=== PATIENT | male | born 1965 | race Caucasian/White ===

== ENCOUNTER 2017-02-12 08:56 | Inpatient (IN) ==
[2017-02-12] MEDS ORDERED: *HR* Ticagrelor 90 MG TABLET PO ONE (09:06)
[2017-02-12] MEDS ORDERED: *HR* Metoprolol 5 MG/5 ML VIAL IVP ONE (09:06)
[2017-02-12] MEDS ORDERED: *HR* Heparin 5,000 UNIT/ML VIAL IVP ONE (09:10)
[2017-02-12] MEDS ORDERED: Aspirin 325 MG TABLET PO ONE (09:12)
[2017-02-12] MEDS ORDERED: Nitroglycerin 0.4 MG TAB.SUBL SL PRN (09:29)
[2017-02-12] MEDS ORDERED: Nitroglycerin 0.4 MG TAB.SUBL SL ONE (09:29)
[2017-02-12 09:31] LABS: Basophils # 0.1 K/mcL (0.0-0.2); Basophils % 0.7 %; Eosinophils # 0.1 K/mcL (0.0-0.6); Eosinophils % 1.1 %; Hematocrit 47.2 % (37.5-50.1); Hemoglobin 15.8 g/dL (12.9-16.9); Immature Granulocytes % 0.3 % (0-4); Immature Platelets 4.9 % (1.1-6.1); Lymphocytes # 2.6 K/mcL (0.6-4.6); Lymphocytes % 22.8 %; Mean Corpuscular HGB Conc 33.5 g/dL (31.6-35.5); Mean Corpuscular Hemoglobin 30.2 pg (28.0-33.3); Mean Corpuscular Volume 90.1 fL (83.0-100.0); Mean Platelet Volume 9.9 fL (9.4-12.4); Monocytes # 0.8 K/mcL (0.0-1.3); Monocytes % 7.3 %; Neutrophils # 7.7 K/mcL (1.6-8.9); Platelet Count 252 K/mcL (140-400); Red Blood Count 5.24 M/mcL (4.19-5.50); Red Cell Distribution Width 13.2 % (11.5-14.5); Segmented Neutrophils % 67.8 %
[2017-02-12] MEDS ORDERED: 0.9 % Sodium Chloride 1,000 ML ONE ×2 (09:32→09:51)
[2017-02-12] MEDS ORDERED: *HR* FentaNYL (PF) 100 MCG/2 ML VIAL ONE (09:32)
[2017-02-12] MEDS ORDERED: *HR* Midazolam HCl 5 MG/5 ML VIAL IVP ONE (09:32)
[2017-02-12] MEDS ORDERED: Verapamil 5 MG/2 ML VIAL ONE (09:32)
[2017-02-12] MEDS ORDERED: Nitroglycerin 1,000 MCG/10 ML VIAL IV ONE (09:33)
[2017-02-12] MEDS ORDERED: *HR* Heparin 10,000 UNIT/10 ML VIAL ONE (09:33)
[2017-02-12] MEDS ORDERED: Heparin 1,000 UNITS/500 mL NS 500 ML ONE (09:33)
[2017-02-12 09:37] LABS: INR 1.1; Prothrombin Time 12.3 Seconds (9.4-12.1)
--- NOTE | 2017-02-12 09:38 | Emergency Department Note ---
Disposition Clinical Impression: STEMI (ST elevation myocardial infarction) Qualifiers: Involved coronary artery: left circumflex coronary artery Qualified Code(s): I21.21 - ST elevation (STEMI) myocardial infarction involving left circumflex coronary artery Disposition: Admitted As Inpatient Chest Pain HPI - General Chief Complaint: ED Chest Pain Stated Complaint: Chest Pain Time Seen by Provider: 02/12/17 08:57 Source: patient Limitations: no limitations Vital Signs Reviewed: Yes Nursing Notes Reviewed: Yes - History of Present Illness HPI Narrative: Patient is here for evaluation of chest pain. Patient awoke between 5 and 6 AM and had substernal pain that he took antacids for. Antacids did not relieve pain. Pain radiation to both shoulders and the jaw. Describes as a dull pressure. Nothing makes it better or worse. Mild diaphoresis. No previous history of chest pain. Daily smoker. Family history of SD in early 50s with father. Patient has hypertension and hypercholesterol that he does not follow with PCP for. EKG shows ST elevations. Will discuss with cardiology and likely admit for cardiac catheterization. Severity scale (1-10): 5 - Related Data Allergies Allergy/AdvReac Type Severity Reaction Status Date / Time No Known Allergies Allergy Verified 02/12/17 09:04 Review of Systems: CONSTITUTIONAL: No weight loss, fever, chills, weakness or fatigue. HEENT: Eyes: No visual changes. Ears, Nose, Throat: No hearing loss, difficulty talking or unable to swallow. SKIN: No rash or itching. CARDIOVASCULAR: chest pain RESPIRATORY: No shortness of breath, cough or sputum. GASTROINTESTINAL: No anorexia, nausea, vomiting or diarrhea. No abdominal pain or blood. GENITOURINARY: No burning on urination or hematuria. NEUROLOGICAL: No headache, dizziness, syncope, paralysis, ataxia, numbness or tingling in the extremities. No change in bowel or bladder control. MUSCULOSKELETAL: No muscle pain, back pain, joint pain or stiffness. Chest Pain PMH - Past Medical History Medical history: Reports: hyperlipidemia Psychiatric history: Reports: no psych history - Social History Smoking Status: Current every day smoker Alcohol use: Reports: none Drug use: Reports: none Physical Exam General appearance: NAD, conversant Eyes: anicteric sclerae, moist conjunctivae; PERRL HENT: Atraumatic; oropharynx clear with moist mucous membranes and no mucosal ulcerations Neck: Normal inspection; Trachea midline; FROM, supple Lungs: CTA, with normal respiratory effort and no intercostal retractions CV: RRR, no MRGs Abdomen: Soft, non-tender; no rebound or gaurding Extremities: No peripheral edema or extremity lymphadenopathy Skin: Normal temperature; no rash, ulcers or lesions Psych: Appropriate mood and affect Neuro: alert and oriented to person, place and time - General Limitations: no limitations General appearance: alert, in no apparent distress Course - Consultations Consultation #1: Dr. MAGALLANES discussed with interventional cardiology. Continue with STEMI alert and the patient will be taken to [facility]. Vital Signs Temperature 98.0 F 02/12/17 08:59 Pulse Rate 74 02/12/17 08:59 Respiratory Rate 16 02/12/17 08:59 Blood Pressure 187/115 02/12/17 08:59 O2 Sat by Pulse Oximetry 99 02/12/17 08:59 Temperature 98.0 F 02/12/17 08:59 Pulse Rate 74 02/12/17 09:34 Respiratory Rate 16 02/12/17 09:34 Blood Pressure 170/102 02/12/17 09:34 O2 Sat by Pulse Oximetry 96 02/12/17 09:34 Oxygen Delivery Oxygen Delivery Room Air Chest Pain - Medical Records Medical records reviewed: Yes I reviewed the patient's medical records. - Lab Data Lab results reviewed: Yes I reviewed the patient's lab results. Result diagrams: 02/12/17 09:25 Lab Results 02/12/17 02/12/17 Range/Units 09:13 09:25 WBC 11.4 H (4.3-11.1) K/mcL RBC 5.24 (4.19-5.50) M/mcL Hgb 15.8 (12.9-16.9) g/dL Hct 47.2 (37.5-50.1) % MCV 90.1 (83.0-100.0) fL MCH 30.2 (28.0-33.3) pg MCHC 33.5 (31.6-35.5) g/dL RDW 13.2 (11.5-14.5) % Plt Count 252 (140-400) K/mcL MPV 9.9 (9.4-12.4) fL Immature Gran % 0.3 (0-4) % Seg Neutrophils % 67.8 % Lymphocytes % 22.8 % Monocytes % 7.3 % Eosinophils % 1.1 % Basophils % 0.7 % Neutrophils # 7.7 (1.6-8.9) K/mcL Lymphocytes # 2.6 (0.6-4.6) K/mcL Monocytes # 0.8 (0.0-1.3) K/mcL Eosinophils # 0.1 (0.0-0.6) K/mcL Basophils # 0.1 (0.0-0.2) K/mcL Immature Plt Fraction 4.9 (1.1-6.1) % Specimen Rejected Hemolyzed - Radiology Data Radiology results reviewed: Yes I reviewed the patient's radiology results. - EKG Data EKG attestation: Yes I reviewed and interpreted this EKG. EKG results narrative: Patient's EKG shows sinus rhythm with a ventricular rate of 69. Patient has significant ST elevations in 1 aVL V4 V5 and V6. Patient has reciprocal changes to V1 and V2 V3. Patient has depression the ST segment of aVR. STEMI alert called. Attestation Statement - Attestation Attestation: I examined this patient and my medical decision-making was reviewed with the Resident Physician. I agree with the documented findings, disposition and treatment plan as described except to the extent set forth below. Patient to ED with chest pain. Substernal to neck and left arm. Pain has improved but not resolved. No cardiac history. Does have a history of hypertension but does not take medicine. Exam shows him sitting in bed with no acute distress. He is hypertensive in the 180s systolic. Plan. Patient has ST elevation in lateral leads. STEMI alert called. Meds given. Patient to [facility]. 30 minutes of critical care exclusive of separately billable procedures.
[2017-02-12] MEDS ORDERED: *HR* Morphine 2 MG/ML SYRINGE IVP PRN (09:40)
--- NOTE | 2017-02-12 09:40 | Cardiology History & Physical ---
Date of Encounter: 02/12/17 Time of Encounter: 09:40 Assessment and Plan (1) STEMI (ST elevation myocardial infarction) Current Visit: Yes Status: Acute Emergent LHC to delineate any coronary disease amenable to intervention. A/R/B of LHC discussed and he wishes to proceed. EF assessment will be completed. Aspirin, brilinta, and heparin given. cardiac rehab ordered. The assessment and plan as outlined above was discussed with the patient and/or family members who expressed understanding and agreement. All questions were answered. Qualifiers: Involved coronary artery: left circumflex coronary artery Qualified Code(s) : I21.21 - ST elevation (STEMI) myocardial infarction involving left circumflex coronary artery (2) Nicotine dependence Current Visit: Yes Status: Acute Nicotine patch. cessation counseled The assessment and plan as outlined above was discussed with the patient and/or family members who expressed understanding and agreement. All questions were answered. Qualifiers: Nicotine product type: cigarettes Substance use status: uncomplicated Qualified Code(s): F17.210 - Nicotine dependence, cigarettes, uncomplicated (3) HTN (hypertension) Current Visit: Yes Status: Acute Medications to be titrated The assessment and plan as outlined above was discussed with the patient and/or family members who expressed understanding and agreement. All questions were answered. Qualifiers: Hypertension type: essential hypertension Qualified Code(s): I10 - Essential (primary) hypertension History of Present Illness Chief complaint: chest pain HPI: Mr. Claudio is a 52 year old male with history of HTN and nicotine dependence - 1ppd - presents with retrosternal chest discomfort described as pressure minimally relieved with NTG/aspirin. It started at 5am, awakening him. He had associated dyspnea. EKG shows lateral STEMI and laboratory aide team activated. Past Med Surg Social Fam HX - Past Medical History Medical history: hyperlipidemia Psychiatric history: no psych history - Social History Smoking Status: Current every day smoker Alcohol use: none Drug use: none Medications and Allergies Allergies No Known Allergies Allergy (Verified 02/12/17 09:04) All Systems Review: A 10-system review of systems was performed and is negative for pertinent findings except as documented above in the HPI. - Constitutional Constitutional: no chills, no fever(s) - EENT Eyes: no blurred vision, no loss of vision Nose, mouth and throat: no bleeding gums, no epistaxis - Cardiovascular Cardiovascular: chest pain at rest, chest pain with exertion - Respiratory Respiratory: dyspnea, no hemoptysis - Gastrointestinal Gastrointestinal: no hematemesis, no hematochezia - Genitourinary Genitourinary: no hematuria, no nocturia - Musculoskeletal Musculoskeletal: no abnormal gait, no myalgias - Integumentary Integumentary: no erythema, no rash - Neurological Neurological: no abnormal speech, no numbness - Psychiatric Psychiatric: no hallucinations, no panic attacks - Hematological/Lymphatic Hematologic/Lymphatic: no easy bleeding, no easy bruising Physical Examination Vital Signs, Last 4 Hours Pulse Resp BP Pulse Ox 02/12/17 09:34 74 16 170/102 96 General: Conversant, Other (mild distress) HEENT: Atraumatic, Normocephaly Neck: No JVD Cardiac: Reg Rate and Rhythm Lungs: Normal Breath Sounds, No Wheeze, Rales, Rhonchi Neuro: Alert and responsive Abdomen: Soft Skin: No rashes noted on visualized skin Musculoskeletal: No Chest Wall Tenderness Extremities: No Edema Results 02/12/17 09:25 02/12/17 09:25 - EKG Interpretation EKG results cardiology: sinus rhythm (lateral current of injury)
[2017-02-12 09:43] LABS: BUN/Creatinine Ratio 13 (6-26); Blood Urea Nitrogen 12 mg/dL (8-26); Calcium 9.5 mg/dL (8.6-10.8); Carbon Dioxide 27 mEq/L (19-29); Chloride 104 mEq/L (98-109); Glucose 115 mg/dL (70-99); Magnesium 2.3 mg/dL (1.6-2.6); Osmolality,Calculated 289 (280-300); Potassium 3.7 mEq/L (3.5-4.5); Sodium 139 mEq/L (136-145); eGFR For African Americans > 60 (> 60); eGFR For Non-African Americans > 60 (> 60)
--- NOTE | 2017-02-12 09:46 | Pre-Sedation Evaluation ---
Pre-sedation evaluation - Pre-sedation checklist Date of procedure: 02/12/17 Procedure: [facility] Recent Vitals: Last Vital Signs Temp 98.0 F 02/12/17 08:59 Pulse 74 02/12/17 09:34 Resp 16 02/12/17 09:34 BP 170/102 02/12/17 09:34 Pulse Ox 96 02/12/17 09:34 H&P (including ROS) documented in medical record: No Previous reaction to sedatives/anesthetics: Yes; explain in comment Dietary Status: NPO after Midnight Airway Assessment: Patient can open mouth completely, TMJ function normal ASA Classification *see protocol: CLASS II-Mild systemic disease Plan of Care: Pt appropriate candidate for procedure/moderate/conscious sedation , Risks/benefits of procedure/sedation discussed w/ patient/family
[2017-02-12] MEDS ORDERED: *HR* HYDROcodone/Acet 5/325 mg TABLET PO PRN (09:51)
[2017-02-12] MEDS ORDERED: Acetaminophen 325 MG TABLET PO PRN (09:51)
[2017-02-12] MEDS ORDERED: Ondansetron 4 MG/2 ML VIAL IVP PRN (09:51)
[2017-02-12] MEDS ORDERED: *HR* Atropine Sulfate 1 MG/10 ML SYRINGE ONE (09:55)
[2017-02-12] MEDS ORDERED: Tirofiban 5 MG/100ML 5 MG/100 ML BAG IV ONE (10:12)
[2017-02-12 10:31] LABS: Activated Partial Thrombo Time > 360.0 Seconds (26.0-36.0)
[2017-02-12 10:32] LABS: Heparin anti-factor XA UFH 0.84 IU/mL (0.30-0.70)
[2017-02-12] MEDS ORDERED: Tirofiban 12.5 MG/250ML 12.5 MG/250 ML BAG IVC SCH (10:45)
[2017-02-12] MEDS ORDERED: *HR* LORazepam 1 MG TABLET PO PRN (10:52)
--- NOTE | 2017-02-12 10:58 | Invasive Diagnostic Lab Proc ---
Name: Curtis Claudio Date of Study: 02/12/2017 Date: 1965 Ht: 70.1in Medical Record#: [id number] Age: 52 Wt: 200.62lb Gender: Male BSA: 2.09 Order #: [id number] BMI: 28.72 Physicians Procedure Physician: Bhanu Grace MD, [facility] Referring MD: Referring MD: Staff Name Position Time In Hafsa Marquez RT (R) Scrub 09:56 AM Yoan Knight RN Accounts Receivable Analyst 09:56 AM Tracy Carvajal RN Monitor 09:56 AM Indications Indication STEMI Procedures Performed Procedure PRQ CARD REVASC WV 1 VSL L HRT ARTERY/VENTRICLE ANGIO Pre-Procedure Checklist Informed consent is complete signed and on chart. H&P is on chart. ID band is on and ID verified with patient. Patient NPO for procedure The procedure was described for the patient and questions were answered. Blood Pressure: 165/106 ECG is on chart. Rhythm: NSR/STEMI Plan of Care Patient will tolerate the procedure without complications. Adequate level of comfort will be maintained. Hemodynamics will remain stable Patient will recover from procedure without complications. Respiratory function will be maintained. Cardiac rhythm will remain stable. Patient temperature will be maintained. Patient and/or family have verbalized understanding of the procedure. Patient Education Chief Complaint/Reason for Test: Cardiac Cath Developmental Category: Adult (18-64 years) Developmentally Appropriate for Age: Yes Learning Barriers: None Education Needs: Procedure Education Method: Verbal Information Taught: Cardiac Cath Educational Evaluation: Able to repeat information Intravenous Access Time IV Size Location DC'd Fluid/Drip Rate Units RN 09:45 AM 20g 1 1/4" Patent On Arrival Lt Arm 0.9NaCl 25 ml/hr Yoan Knight RN 09:45 AM 18g 1 1/4" Patent On Arrival Rt Antecubital Allergies No Known Allergies Vital Signs Time BP (mmHg) HR (bpm) O2 Sat. RR (bpm) LOC 09:46 AM 165 / 106 64 98 % 16 5 = Fully awake and oriented or at pre-proc level 09:54 AM / % 5 = Fully awake and oriented or at pre-proc level 09:54 AM / % 4 = Oriented but drowsy 10:09 AM / % 5 = Fully awake and oriented or at pre-proc level 10:28 AM 134 / 84 57 98 % 13 09:53 AM 154 / 100 71 100 % 18 09:58 AM 149 / 92 67 99 % 10 10:03 AM 142 / 83 72 99 % 14 10:08 AM 142 / 82 52 99 % 17 10:13 AM 131 / 94 39 99 % 12 10:19 AM 140 / 87 54 99 % 11 10:23 AM 132 / 88 59 99 % 11 Procedural Medications Time Medication Dose Units Method Given By 09:53 AM Oxygen 2 L/min nasal cannula Antonia Yoan RN 09:54 AM Versed 2 mg Intravenous [place], Yoan RN 09:54 AM Fentanyl 50 mcg Intravenous [place], Yoan RN 10:00 AM Lidocaine 2% 0.5 ml Subcutaneous Bhanu Grace MD, FACC 10:01 AM Heparin 1000 units Nitroglycerin 200 mcg Verapamil 2.5 mg Intraarterial Bhanu Grace MD, FACC 10:14 AM Versed 1 mg Intravenous [place], Yoan RN 10:14 AM Fentanyl 25 mcg Intravenous [place], Yoan RN 10:14 AM Aggrastat Bolus: 46 ml Intravenous [place], Yoan RN 10:14 AM Aggrastat 5mg/100ml 16.5 ml Intravenous [place], Yoan RN 10:24 AM Fentanyl 25 mcg Intravenous [place], Yoan RN 10:25 AM Nitroglycerin 200 mcg Intraarterial Bhanu Grace MD ASA Classification: CLASS II- Mild systemic disease (i.e. well-controlled diabetes, hypertension, asthma, cigarette smoking) Emergent Procedure: ASA score is assumed Diamond Score Preprocedure Postprocedure Activity 2- Moves 4 extremities sustained head lift Activity 2- Moves 4 extremities sustained head lift Circulation 2- SBP +/= 20 points of pre-anesthetic level Circulation 2- SBP +/= 20 points of pre-anesthetic level Consciousness 2- Awake and alert oriented x 3 Consciousness 2- Awake and alert oriented x 3 O2 Saturation 2- Able to maintain O2 satruation of 92% on room air O2 Saturation 2- Able to maintain O2 satruation of 92% on room air Respiratory 2- Able to deep breathe and cough well Respiratory 2- Able to deep breathe and cough well Total Score 10 Total Score 10 Contrast Agent: Isovue Diagnostic Contrast: 110 ml Total Contrast: 110 ml Fluoro Dose: 507 mGy Activated Clotting Time Time Seconds to Clot 10:22 AM 262 Procedure Log Time Note Enter By 09:41 AM Pt arrived to general production laborer 2 at 09:41 [facility] 09:42 AM Physician arrived 09:42 [facility] 09:42 AM Meet and greet completed [facility] 09:43 AM Sign in performed according to hospital policy. [facility] 09:44 AM Procedure start 09:44 [facility] 09:52 AM ASA Class CLASS II- Mild systemic disease (i.e. well-controlled diabetes, hypertension, asthma, cigarette smoking) [facility] 09:52 AM Vitals capture started with the following parameters, Patient=Adult, Interval=5 min, Initial Gkakmmmx=879 mmHg, Deflation Rate=5 mmHg, Cuff placed on Left Arm 09:52 AM CathStat 09:53 AM Recorded ECG: HR=63 Condition=Condition 1 09:53 AM HR=71 bpm, DDRX=117/100 mmhg, CkT7=904.0 %, Resp=18 B/min, Comment=NSR 09:54 AM Time: 09:53 Oxygen on at 2 L/min per nasal cannula by [facility] 09[facility] AM Time: 09:54 Versed 2 mg Intravenous Given by Yoan Knight RN [facility] 09:54 AM Time: 09:54 Fentanyl 50 mcg Intravenous Given by Yoan Knight RN [facility] 09:54 AM Time: 09:54 Patient comfortable and pain free: Yes [facility] 09:54 AM Time: 09:54LOC: 5 = Fully awake and oriented or at pre-proc [facility] 09:[facility] AM Clinical Presentation: STEMI or equivalent [facility] 09:56 AM Patient charges- Angio tray pack, Navilyst 3mm J, Pulse Oximetry and ACIST tubing and transducer [facility] 09:56 AM Hafsa Marquez (R) Position: Scrub Time in: 09:56 [facility] 09[facility] AM Yoan Knight RN Position: Accounts Receivable Analyst Time in: :56 [facility] 09:56 AM Tracy Carvajal RN Position: Monitor Time in: 09:56 [facility] 09:57 AM Case Delayed No [facility] 09:57 AM Hair removed from procedure site in procedure lab using clippers. Right wrist prepped with Chloraprep by Hafsa Marquez (R), safety strap applied then patient was draped. Skin intact. [facility] 09:57 AM Hair removed from procedure site in procedure lab using clippers. Right groin prepped with Chloraprep by Hafsa Marquez ([place]), safety strap applied then patient was draped. Skin intact. [facility] 09:58 AM HR=67 bpm, GSCH=026/92 mmhg, SpO2=99.0 %, Resp=10 B/min, Comment=NSR 10:00 AM Time out performed according to hospital policy [facility] 10:01 AM Time: 10:00 0.5 ml Lidocaine 2% to right radial Subcutaneous [facility] 10:01 AM Access obtained by percutaneous puncture. 6Fr 10cm Terumo Glidesheath sheath placed in right Radial artery. [id number] [facility] 10:01 AM Time: 10:01 Patient given 1,000 units Heparin, 200 mcg Nitroglycerin, and 2.5 mg Verapamil Intraarterial by [facility], [facility] 10:03 AM HR=72 bpm, ZGYM=039/83 mmhg, SpO2=99.0 %, Resp=14 B/min, Comment=NSR 10:03 AM 6Fr RBL 3.5 Convey guide catheter was used to cannulate the PCI vessel successfully. reused? No [facility] 10:04 AM 0.035 260cm Navilyst 3mmJ wire [id number] [facility] 10:04 AM PCI Status Emergency [facility] 10:04 AM PCI Indication: Immediate PCI for STEMI [facility] 10:04 AM LCA angiography performed in multiple views. [facility] 10:04 AM Inflation device was opened. [facility] 10:05 AM .014 [place] 190cm guide wire across target lesion- successful. reused? No [facility] 10:05 AM 2.5 mm x 12 mm Emerge Monorail balloon across target lesion- successful. reused? No [facility] 10:06 AM Balloon inflated @ 8 ludivina for 6 seconds [facility] 10:06 AM Recorded Pressure: Ao, HR=65, Condition=Condition 1 (Aorta) Ao 144/102/120 10:07 AM PCI lesion in Mid Circumflex. [facility]ley 10:07 AM PCI lesion in Mid Circumflex. Pre Stenosis: 100 Pre HOLLY Flow: 0: No Flow/No perfusion [facility] 10:07 AM Recorded Pressure: Ao, HR=48, Condition=Condition 1 (Aorta) Ao 133/94/110 10:08 AM Repurfusion rhythm [address] Grace aware [facility] 10:08 AM HR=52 bpm, IKMT=130/82 mmhg, SpO2=99.0 %, Resp=17 B/min, Comment=NSR 10:08 AM Lesion found in Mid LAD. Pre Stenosis: 50 Pre HOLLY Flow: l[facility]ley 10: AM Time: 09:54LOC: 4 = Oriented but drowsy [facility] 10:09 AM Time: 09:54 Patient comfortable and pain free: Yes [facility] 10:10 AM Balloon catheter removed intact. [facility] 10:10 AM 3.0mm x 20mm Synergy drug-eluting stent across target lesion- successful Lot #[id number] [facility] 10:11 AM Pressure channel 1 zero failed. 10:11 AM Pressure channel 1 zeroed. 10:12 AM Stent deployed @ 14 ludivina for 18 seconds [facility] 10:12 AM Stent delivery system removed intact. [facility] 10:13 AM 3.5 mm x 6mm NC Trek Rx balloon across target lesion- successful. reused? No [facility] 10:13 AM Lesion found in Proximal LAD. Pre Stenosis: 50 Pre HOLLY Flow: 3: Complete and Brisk Flow/Perfusion [facility] 10:13 AM Lesion found in Mid LAD. Pre Stenosis: 50 Pre HOLLY Flow: 3: Complete and Brisk Flow/Perfusion [facility] 10:13 AM HR=39 bpm, WOUP=446/94 mmhg, SpO2=99.0 %, Resp=12 B/min, Comment=NSR 10:14 AM Time: 10: Versed 1 mg Intravenous Given by Yoan Knight RN [facility] 10:14 AM Time: 10: Fentanyl 25 mcg Intravenous Given by Yoan Knight RN 10:14 AM Time: : Aggrastat Bolus: 46 ml Intravenous Given by Yoan Knight RN [facility] 10:15 AM Time: 10:14 Aggrastat 5mg/100ml 16.5 ml Intravenous Given by Yoan Knight RN [facility] lp[facility]ja 10:15 AM Balloon inflated @ 16 ludivina for 18 seconds [facility] 10:15 AM Recorded Pressure: Ao, HR=45, Condition=Condition 1 (Aorta) Ao 116/74/92 10:16 AM Balloon catheter removed intact. [facility] 10:16 AM Guide wire removed intact. [facility] 10:17 AM 5Fr TIG catheter inserted over the wire [facility] 10:18 AM Patient having discomfort with 6Fr radial [facility] 10:19 AM Catheter removed unable to engage [facility] 10:19 AM HR=54 bpm, DDOV=268/87 mmhg, SpO2=99.0 %, Resp=11 B/min, Comment=NSR 10:19 AM 5Fr Pigtail catheter inserted over the wire [facility] 10:19 AM Catheter selectively placed in left ventricle [facility] 10:21 AM Recorded Pressure: LV, HR=55, Condition=Condition 1 (Left Ventricle) LV 130/1/21 10:21 AM Bolus angiogram of left Ventricle complete: 10 ml/sec for a total of 30 mls [facility] 10:22 AM Recorded Pressure: LV, Ao, HR=54, Condition=Condition 1 (Left Ventricle) LV 122/3/21, (Aorta) Ao 123/72/93 10:22 AM At 10:22 the ACT was 262 seconds. [facility] 10:23 AM 5Fr 3DRC catheter inserted over the wire [id number] [facility] 10:23 AM HR=59 bpm, CKFP=301/88 mmhg, SpO2=99.0 %, Resp=11 B/min, Comment=NSR 10:23 AM RCA angiography performed in multiple views. [facility] 10:24 AM Time: 10:24 Fentanyl 25 mcg Intravenous Given by Yoan Knight RN [facility] 10: AM Time: 10:09 Patient comfortable and pain free: Yes [facility] 10:25 AM Time: 10:LOC: 5 = Fully awake and oriented or at pre-proc level [facility] 10:25 AM Time: 10:25 Nitroglycerin 200 mcg Intraarterial Given by Bhanu [facility] MD [facility] 10:26 AM 4Fr JR4 catheter inserted over the wire [id number] [facility] 10:27 AM RCA angiography performed in multiple views. [facility] 10:27 AM Recorded Pressure: Ao, HR=58, Condition=Condition 1 (Aorta) Ao 111/84/98 10:27 AM Coronary Dominance: right [facility] 10:27 AM Lesion found in Mid RCA. Pre Stenosis: 30 Pre HOLLY Flow: 3: Complete and Brisk Flow/Perfusion [facility] 10:28 AM Lesion found in Right PDA. Pre Stenosis: 30 Pre HOLLY Flow: 3: Complete and Brisk Flow/Perfusion [facility] 10:28 AM Catheter removed [facility] 10:28 AM Procedure completed at 10:28 [facility] 10:28 AM HR=57 bpm, TGRF=265/84 mmhg, SpO2=98.0 %, Resp=13 B/min, Comment=NSR 10:29 AM Sign out completed: Radiation Dose 506.97 mGy Fluoro Time: 5.6 Isovue 370 - 200ml contrast 110 ml given by Bhanu Grace MD, [facility]. Complications: NoneCardiac Rehab Consult needed: YesConfirmed administered medications: Yes [facility] 10:29 AM Isovue 370 - 500ml,1 Bottle(s) used. [facility] 10:29 AM Arterial sheath pulled, Vasc Band closure device used and was Successful S/N. [facility] 10:29 AM 11 ml air in Vasc Band. [facility] 10:29 AM Post ECG Sinus Bradycardia [facility] 10:29 AM Post Blood Pressure 134/84 [facility] 10:30 AM 10:29 Post Pulses Rt Radial 2+ [facility] 10:30 AM Information taught Cardiac Cath, PCI, and Vasc Band [facility] 10:30 AM Education needs Procedure, Plan of Care, and Safe & Effective Use of Medications [facility] 10:30 AM Learning barriers :None [facility] 10:30 AM Education Methods Verbal [facility] 10:30 AM Education evaluation Able to repeat information [facility] 10:30 AM Site status No bleeding/hematoma - Rt Wrist as reported by Hafsa Marquez RT (R) at 10:30 [facility] 10:37 AM Report given to Carlota STEVE Pt taken to ICU Room #8. 10:32 [facility] 10:37 AM Plavix, Effient or Brilinta given Yes [facility] 10:37 AM Delay to floor No [facility] 10:37 AM Patient out of room: 10:37 [facility] 10:37 AM Family placed in consult room. [facility] 10:37 AM Complications: None [facility] 10:37 AM Fluoro Time: 5.6 [facility] 10:37 AM Isovue 370 - 200ml contrast 110 ml given by Bhanu Grace MD, [facility]. [facility] 10:37 AM Radiation Dose 506.97 mGy [facility] 10:48 AM Proximal Left Anterior Descending Coronary Artery with 50% stenosis. [facility] 10:48 AM Mid/Distal Left Anterior Descending Coronary Artery and diagonal branches with 50% stenosis. [facility] 10:48 AM Circumflex, Obtuse Marginal, Left Posterior Descending, and Left Posterolateral Coronary Arteries with 100 % stenosis. [facility] 10:48 AM Right Coronary, Right Posterior Descending Arteries with Right Posterolateral and Acute Marginal branches with 30 % stenosis. [facility] Complications Complication None Hemodynamics Pressures Site Systolic/A Wave Diastolic/V Wave Mean AO 144 102 120 AO 133 94 110 AO 116 74 92 LV 130 1 21 LV 122 3 21 AO 123 72 93 AO 111 84 98 Post Procedure Information Blood Pressure: 134/84 mmHg Rhythm: Sinus Bradycardia Post procedural instructions were given Closure Device Time Device Success/Fail 02/12/2017 10:29:00 AM Mechanical Compression Successful Site Checks Time Location Status Staff Sheath In? Note 10:30 AM Rt Wrist No bleeding/hematoma Hafsa Marquez RT (R) Pulses Time Site Pre-Procedure Post-Procedure Note 02/12/2017 10:02:00 AM Bilateral DP & PT 2+ 02/12/2017 10:02:00 AM Rt Radial 2+ 02/12/2017 10:02:00 AM Rt Radial Normal plethysmography's Test 10:29:00 AM Rt Radial 2+ Updated by Tracy Carvajal RN on 02/12/2017 10:51:22 AM electronically signed on 02/12/2017 10:51:48 AM with status of Final
--- NOTE | 2017-02-12 11:09 | Invasive Diagnostic Lab ---
Name: Curtis Claudio Date of Study: 02/12/2017 Date: 1965 Ht: 178.0 cm /70.1 in Medical Record#: [id number] Age: 52 Wt: 91. kg / 200.62 lb Account/Order#: [id number] Gender: Male BSA: 2.09 Order #: [id number] Fluoro Dose: 507 mGy BMI: 28.72 Procedure Physician: Bhanu Grace MD, [facility] Referring MD: Referring MD: Procedures Performed: Transradial PCI of Acute VT LEFT HEART CATH Indications: STEMI Impressions: Radial spasm, recommend transfemoral approach if future LHC necessary There is moderate residual two vessel coronary artery disease. There is severe one vessel coronary artery disease. Patient had successful PTCA/Drug-Eluting Stent placement in the mid Circ. Culprit for VT The left ventricle is normal and has normal contractility EF 65% Smoker Recommendations: Optimal medical therapy of patient's disease. Aggressive risk factor modification. Smoking cessation counseled History/Risk Factors: CP STEMI Current/Recent Smoker Family History of CAD Procedure Access obtained in the right Radial artery by percutaneous puncture Patient had successful PTCA/Drug-Eluting Stent placement in the mid Circ. Complications: None Contrast: Isovue 110ml Closure Device: Mechanical Compression Hemodynamics: Pressures Site Systolic/ A Wave Diastolic/ V Wave End Diastolic/ Mean HR AO 144 102 120 65 AO 133 94 110 48 AO 116 74 92 45 LV 130 1 21 55 LV 122 3 21 54 AO 123 72 93 53 AO 111 84 98 58 LV Ventriculography Ejection Method: LV Gram Ejection Fraction: 65% Wall Motion: LINDSEY Anterobasal Normal Anterolateral Normal Apical: Mild Hypokinesis Inferoapical Normal Inferobasal Normal Coronary Dominance: right Lesion Findings/Interventions * Left Main Coronary Artery The LMCA is angiographically free of disease. * Left Anterior Descending There is a 50% stenosis in the Proximal LAD. The lesion has a HOLLY flow of 3. There is a 50% stenosis in the Mid LAD. * Circumflex There is a 20 mm long, 100% stenosis in the Mid Circumflex. Thrombus present The lesion has a HOLLY flow of 0. An intervention was performed on the Mid Circumflex with a final stenosis of 0%. There were no lesion complications. The final HOLLY flow was 3. Culprit for VT * Right Coronary Artery There is a 30% stenosis in the Mid RCA. The lesion has a HOLLY flow of 3. There is a 30% stenosis in the Right PDA. The lesion has a HOLLY flow of 3. Interventional Device(s) Vessel Segment Type Name Diameter (mm) Length (mm) Mid Circumflex Balloon NC Trek Rx 3.5 6 Mid Circumflex Drug Eluting Stent Synergy 3 20 Mid Circumflex Balloon Emerge Monorail 2.5 12 Updated by Tracy Carvajal RN on 02/12/2017 10:51:01 AM Bhanu Grace MD, [facility] electronically signed on 02/12/2017 11:02:25 AM with status of Final
--- NOTE | 2017-02-12 15:47 | Emergency Department Note ---
Disposition Clinical Impression: STEMI (ST elevation myocardial infarction) Qualifiers: Involved coronary artery: left circumflex coronary artery Qualified Code(s): I21.21 - ST elevation (STEMI) myocardial infarction involving left circumflex coronary artery Disposition: Admitted As Inpatient Condition: Serious Referrals: NONE,PCP [Primary Care Provider] - Forms: ED Satisfaction Letter Chest Pain HPI - General Chief Complaint: ED Chest Pain Stated Complaint: Chest Pain Time Seen by Provider: 02/12/17 08:57 Source: patient Limitations: no limitations Vital Signs Reviewed: Yes Nursing Notes Reviewed: Yes - History of Present Illness HPI Narrative: 52-year-old male presents with sudden onset of chest pain times approximately 3 hours ago. Patient states this pain came on before sunrise. Patient states he walked around the [place] of pain and took antacid but pain did not halts or lessen. Patient states there was mid substernal sharp burning pain with radiation down both arms and up into his neck. He states pain was 8 out of 10 and constant. Patient was brought to the hospital by his partner who is at bedside. EKG was taken which showed STEMI in lead 1 aVL, V4 V5 and V6. STEMI was called. Business Programmer was activated. Severity scale (1-10): 5 - Related Data Home Medications Medication Instructions Recorded Confirmed No Known Home Drugs 02/12/17 02/12/17 Allergies Allergy/AdvReac Type Severity Reaction Status Date / Time No Known Allergies Allergy Verified 02/12/17 09:04 All systems ED: reviewed and negative except as stated. Review of Systems: As Per HPI Constitutional: Denies: fever Eyes: Denies: eye pain ENT ED: Denies: ear pain, congestion Cardiovascular: Reports: chest pain Respiratory: Denies: cough, dyspnea Gastrointestinal: Denies: abdominal pain, nausea, melena Genitourinary: Denies: urgency, dysuria Musculoskeletal: Reports: neck pain. Denies: back pain Integumentary: Denies: rash Neurological: Denies: headache Psychiatric: Reports: anxiety Endocrine: Denies: fatigue Hematological/Lymphatic: Denies: easy bleeding Chest Pain PMH - Past Medical History Medical history: Reports: coronary artery disease, hyperlipidemia, myocardial infarction Psychiatric history: Reports: no psych history - Social History Smoking Status: Current every day smoker Alcohol use: Reports: none Drug use: Reports: marijuana Physical Exam Vital Signs Temperature 98.0 F 02/12/17 08:59 Pulse Rate 74 08/13/17 08:59 Respiratory Rate 16 02/12/17 08:59 Blood Pressure 187/115 02/12/17 08:59 O2 Sat by Pulse Oximetry 99 02/12/17 08:59 Temperature 100.4 F H 02/12/17 10:45 Pulse Rate 68 02/12/17 13:00 Respiratory Rate 20 02/12/17 13:00 Blood Pressure 145/101 02/12/17 13:00 O2 Sat by Pulse Oximetry 95 02/12/17 13:00 Oxygen Delivery Oxygen Delivery Room Air -General Appearance: Patient is a 82-year-old male who is alert and oriented 3 and in no acute distress. Patient has a look of extreme worry -Neurological exam: Cranial nerves III-12 grossly intact, no focal deficits observed, strength equal 5/5 bilaterally in upper and lower extremities Negative loss of sensation - Head Head exam: atraumatic, normocephalic, normal inspection - Eye Eye exam: Present: normal appearance, PERRL, EOMI, negative for scleral icterus negative for conjunctival pallor - ENT ENT exam: normal exam, normal oropharynx, mucous membranes moist - Neck Neck exam: Present: normal inspection, full ROM, trachea midline, negative JVD - Chest Chest inspection: Present: Patient has bilateral equal rise and fall of chest wall. Non-tender to palpation. - Respiratory Respiratory exam: Clear to auscultation bilaterally without wheezes rales or rhonchi Cardiovascular Cardiovascular exam: Present: regular rate, normal rhythm, normal heart sounds, without murmurs rubs or gallops. - Abdominal Exam Abdominal exam: Present: soft, nondistended, Non-Tender light and deep palpation in all quadrants. Bowel sounds normoactive throughout all 4 quadrants. Negative for hyper or hyperresonance. - Extremities Exam Extremities exam: Present: normal inspection, full ROM, pulses equal regular bilateral radials and dorsal pedal no pedal edema - Back Exam Back exam: Present: normal inspection, full ROM. - Skin Skin exam: Present: warm, dry, intact, normal color - General Limitations: no limitations General appearance: alert, in no apparent distress Course - Reevaluation(s) Reevaluation #1: He seen and examined currently being worked up for STEMI, aspirin, heparin, nitroglycerin, Lopressor,brylinta ordered, Dr. Grace notified Time: 09:01 Reevaluation #2: No change in patient's pain symptoms. He has had all of his medications previously ordered. Business Programmer states they will be here in 5 minutes Time: 09:20 - Consultations Consultation #1: Dr. Grace was notified and he agrees and is activating the catheter lab Time: 09:02 Vital Signs Temperature 98.0 F 02/12/17 08:59 Pulse Rate 74 02/12/17 08:59 Respiratory Rate 16 02/12/17 08:59 Blood Pressure 187/115 02/12/17 08:59 O2 Sat by Pulse Oximetry 99 02/12/17 08:59 Temperature 100.4 F H 02/12/17 10:45 Pulse Rate 68 02/12/17 13:00 Respiratory Rate 20 02/12/17 13:00 Blood Pressure 145/101 02/12/17 13:00 O2 Sat by Pulse Oximetry 95 02/12/17 13:00 Oxygen Delivery Oxygen Delivery Room Air Chest Pain - MDM Narrative Medical decision making narrative: STEMI - Lab Data Lab results reviewed: Yes I reviewed the patient's lab results. Lab results narrative: Short CBC 02/12/17 Range/Units 09:25 WBC 11.4 H (4.3-11.1) K/mcL Hgb 15.8 (12.9-16.9) g/dL Hct 47.2 (37.5-50.1) % Plt Count 252 (140-400) K/mcL Neutrophils # 7.7 (1.6-8.9) K/mcL BMP 02/12/17 Range/Units 09:25 Sodium 139 (136-145) mEq/L Potassium 3.7 (3.5-4.5) mEq/L Chloride 104 (98-109) mEq/L Carbon Dioxide 27 (19-29) mEq/L BUN 12 (8-26) mg/dL Creatinine 0.90 (0.72-1.25) mg/dL Glucose 115 H (70-99) mg/dL Calcium 9.5 (8.6-10.8) mg/dL Cardiac Enzymes 02/12/17 Range/Units 09:25 Troponin I 0.33 H* (0-0.03) ng/mL Result diagrams: 02/12/17 09:25 02/12/17 09:25 Lab Results 02/12/17 02/12/17 02/12/17 Range/Units 09:13 09:25 09:25 WBC 11.4 H (4.3-11.1) K/mcL RBC 5.24 (4.19-5.50) M/mcL Hgb 15.8 (12.9-16.9) g/dL Hct 47.2 (37.5-50.1) % MCV 90.1 (83.0-100.0) fL MCH 30.2 (28.0-33.3) pg MCHC 33.5 (31.6-35.5) g/dL RDW 13.2 (11.5-14.5) % Plt Count 252 (140-400) K/mcL MPV 9.9 (9.4-12.4) fL Immature Gran % 0.3 (0-4) % Seg Neutrophils % 67.8 % Lymphocytes % 22.8 % Monocytes % 7.3 % Eosinophils % 1.1 % Basophils % 0.7 % Neutrophils # 7.7 (1.6-8.9) K/mcL Lymphocytes # 2.6 (0.6-4.6) K/mcL Monocytes # 0.8 (0.0-1.3) K/mcL Eosinophils # 0.1 (0.0-0.6) K/mcL Basophils # 0.1 (0.0-0.2) K/mcL Immature Plt Fraction 4.9 (1.1-6.1) % PT 12.3 H (9.4-12.1) Seconds INR 1.1 APTT > 360.0 H* (26.0-36.0) Seconds Heparin Anti-Xa, Unfract 0.84 H (0.30-0.70) IU/mL Sodium (136-145) mEq/L Potassium (3.5-4.5) mEq/L Chloride (98-109) mEq/L Carbon Dioxide (19-29) mEq/L BUN (8-26) mg/dL Creatinine (0.72-1.25) mg/dL Est GFR ( Amer) (> 60) Est GFR (Non-Af Amer) (> 60) BUN/Creatinine Ratio (6-26) Glucose (70-99) mg/dL POC Glucose (58-89) Calculated Osmolality (280-300) Calcium (8.6-10.8) mg/dL Magnesium (1.6-2.6) mg/dL Troponin I (0-0.03) ng/mL Specimen Rejected Hemolyzed 02/12/17 02/12/17 02/12/17 Range/Units 09:25 09:25 10:50 WBC (4.3-11.1) K/mcL RBC (4.19-5.50) M/mcL Hgb (12.9-16.9) g/dL Hct (37.5-50.1) % MCV (83.0-100.0) fL MCH (28.0-33.3) pg MCHC (31.6-35.5) g/dL RDW (11.5-14.5) % Plt Count (140-400) K/mcL MPV (9.4-12.4) fL Immature Gran % (0-4) % Seg Neutrophils % % Lymphocytes % % Monocytes % % Eosinophils % % Basophils % % Neutrophils # (1.6-8.9) K/mcL Lymphocytes # (0.6-4.6) K/mcL Monocytes # (0.0-1.3) K/mcL Eosinophils # (0.0-0.6) K/mcL Basophils # (0.0-0.2) K/mcL Immature Plt Fraction (1.1-6.1) % PT (9.4-12.1) Seconds INR APTT (26.0-36.0) Seconds Heparin Anti-Xa, Unfract (0.30-0.70) IU/mL Sodium 139 (136-145) mEq/L Potassium 3.7 (3.5-4.5) mEq/L Chloride 104 (98-109) mEq/L Carbon Dioxide 27 (19-29) mEq/L BUN 12 (8-26) mg/dL Creatinine 0.90 (0.72-1.25) mg/dL Est GFR ( Amer) > 60 (> 60) Est GFR (Non-Af Amer) > 60 (> 60) BUN/Creatinine Ratio 13 (6-26) Glucose 115 H (70-99) mg/dL POC Glucose 117 H (58-89) Calculated Osmolality 289 (280-300) Calcium 9.5 (8.6-10.8) mg/dL Magnesium 2.3 (1.6-2.6) mg/dL Troponin I 0.33 H* (0-0.03) ng/mL Specimen Rejected - Radiology Data Radiology results reviewed: Yes I reviewed the patient's radiology results. Chest X-Ray 02/12/17 09:07 IMPRESSION: No acute process. D/ / Domenic Villa MD / Dmoenic Villa MD Interpreting Provider: Domenic Villa MD - EKG Data EKG attestation: Yes I reviewed and interpreted this EKG. EKG results narrative: EKG taking at arrival shows ST elevation in leads 1 aVL, V4 V5 V6, or cervical changes can be seen in V1 V2 and V3. Heart Score - Score History: Slightly Suspicious EKG: Significant ST-Depression Age: 45-65 Risk Factors: 1-2 risk factors Troponin: Greater than 3x normal limit HEART Score Total: 6
[2017-02-12] MEDS: *HR* Ticagrelor 90 MG TABLET PO SCH (20:09)
[2017-02-13 03:23] LABS: Hemoglobin A1C 5.2 %
[2017-02-13 03:26] LABS: BUN/Creatinine Ratio 11 (6-26); Blood Urea Nitrogen 9 mg/dL (8-26); Calcium 9.4 mg/dL (8.6-10.8); Carbon Dioxide 17 mEq/L (19-29); Chloride 108 mEq/L (98-109); Glucose 100 mg/dL (70-99); Osmolality,Calculated 281 (280-300); Sodium 136 mEq/L (136-145); eGFR For African Americans > 60 (> 60); eGFR For Non-African Americans > 60 (> 60)
[2017-02-13 03:34] LABS: Potassium 4.3 mEq/L (3.5-4.5)
[2017-02-13 05:47] LABS: Basophils # 0.1 K/mcL (0.0-0.2); Basophils % 0.5 %; Eosinophils # 0.1 K/mcL (0.0-0.6); Eosinophils % 0.9 %; Hematocrit 49.2 % (37.5-50.1); Hemoglobin 16.6 g/dL (12.9-16.9); Immature Granulocytes % 0.5 % (0-4); Lymphocytes # 2.9 K/mcL (0.6-4.6); Lymphocytes % 20.5 %; Mean Corpuscular HGB Conc 33.7 g/dL (31.6-35.5); Mean Corpuscular Hemoglobin 31.4 pg (28.0-33.3); Mean Corpuscular Volume 93.2 fL (83.0-100.0); Mean Platelet Volume 10.9 fL (9.4-12.4); Monocytes # 1.3 K/mcL (0.0-1.3); Monocytes % 9.1 %; Neutrophils # 9.7 K/mcL (1.6-8.9); Nucleated Red Blood Cells 0.2 /100 WBC (0); Platelet Count 267 K/mcL (140-400); Red Blood Count 5.28 M/mcL (4.19-5.50); Red Cell Distribution Width 13.7 % (11.5-14.5); Segmented Neutrophils % 68.5 %
--- NOTE | 2017-02-13 07:08 | Electrocardiograph Report ---
[address] [place], [place] [address] Test Date: 2017-02-12 Pat Name: Curtis Claudio Department: 104 Room: [facility] Gender: M Roll Weigher: TINY : 1965 Requested By: Radha See Order Number: [id number] Reading MD: Bhanu Grace MD Measurements Intervals [place] Rate: 69 P: 41 MI: 162 QRS: 20 QRSD: 98 T: 37 QT: 379 QTc: 398 Interpretive Statements SINUS RHYTHM WITH SINUS ARRHYTHMIA MARKED ST ELEVATION, CONSIDER LATERAL INJURY ACUTE ID Electronically Signed On 02-13-2017 7:07:12 EDT by Bhanu Grace MD
[2017-02-13] MEDS: *HR* Ticagrelor 90 MG TABLET PO SCH (08:32)
[2017-02-13 08:58] VITALS: BP 124/86
[2017-02-13] MEDS ORDERED: Nicotine 21 MG PATCH.TD24 TD SCH (09:00)
[2017-02-13] MEDS ORDERED: Aspirin 81 MG TAB.CHEW PO SCH (09:00)
[2017-02-13] MEDS ORDERED: amLODIPine 5 MG TABLET PO SCH (09:00)
--- NOTE | 2017-02-13 09:54 | Discharge Summary ---
Date of Encounter: 02/13/17 Time of Encounter: 09:54 - Discharge Diagnosis (1) STEMI (ST elevation myocardial infarction) Priority: Primary Status: Acute Qualifiers: Involved coronary artery: left circumflex coronary artery Qualified Code(s) : I21.21 - ST elevation (STEMI) myocardial infarction involving left circumflex coronary artery (2) CAD (coronary artery disease) Priority: Primary Status: Acute Qualifiers: Coronary Disease-Associated Artery/Lesion type: [place] artery [place] vs. transplanted heart: [place] heart Associated angina: angina presence unspecified Qualified Code(s): I25.10 - Atherosclerotic heart disease of [place] coronary artery without angina pectoris (3) Nicotine dependence Priority: Secondary Status: Acute Qualifiers: Nicotine product type: cigarettes Substance use status: uncomplicated Qualified Code(s): F17.210 - Nicotine dependence, cigarettes, uncomplicated (4) HTN (hypertension) Priority: Secondary Status: Acute Qualifiers: Hypertension type: essential hypertension Qualified Code(s): I10 - Essential (primary) hypertension - Discharge Medications Prescriptions: Nitroglycerin 0.4 mg SL Q5MIN PRN #30 PRN Reason: Chest Pain amLODIPine [Norvasc] 5 mg PO DAILY #30 tab Aspirin 81 mg PO DAILY #30 Carvedilol [Coreg] 6.25 mg PO BIDWM #60 tab Rosuvastatin [Crestor] 40 mg PO HS #30 tab Ticagrelor [Brilinta] 90 mg PO BID #60 tab Home Medications: Aspirin 81 mg PO DAILY #30 02/13/17 [Rx] Carvedilol [Coreg] 6.25 mg PO BIDWM #60 tab 02/13/17 [Rx] Nitroglycerin 0.4 mg SL Q5MIN PRN #30 02/13/17 [Rx] Rosuvastatin [Crestor] 40 mg PO HS #30 tab 02/13/17 [Rx] Ticagrelor [Brilinta] 90 mg PO BID #60 tab 02/13/17 [Rx] amLODIPine [Norvasc] 5 mg PO DAILY #30 tab 02/13/17 [Rx] Allergies/Adverse Reactions: Allergies No Known Allergies Allergy (Verified 02/12/17 09:04) Procedures/tests Complete & Pending: Procedures Performed prior 72 hours Category Date Time Status ECG 12 lead ECG [ECG] Routine Y 02/12/17 09:41 Ordered ECG 12 lead ECG [ECG] Routine Y 02/12/17 09:51 Ordered ECG 12 lead ECG [ECG] Routine Y 02/13/17 07:00 Ordered ECG 12 lead ECG [ECG] Stat Y 02/12/17 09:41 Completed EV echocardiogram Routine Y 02/12/17 09:41 Completed Date of admission: 02/12/17 09:33 Primary care physician: PCP NONE Consults: 02/12/17 09:41 Consult to Cardiac Rehabilitation-Phase1 [CONS] Routine Comment: Reason for Consult: AMI Call Completed: Yes Consult to Nurse Navigator [CONS] Routine Comment: Discharging clinician: Reza Velasco Anticipated date of discharge: 02/13/17 - Patient Status Disposition: Left Against Medical Advice Condition: Serious Functional capacity at discharge: independent ambulation Overall status at discharge: patient is not back to baseline - Discharge Instructions Follow Up With: NONE,PCP [Primary Care Provider] - Forms: ED Satisfaction Letter Additional Instructions: RISK FACTORS: STOP SMOKING: If you smoke, STOP. Smoking or tobacco use significantly increases your risk of heart disease because nicotine causes the arteries to narrow or constrict. It also causes fats to stick to the artery. Your chances of having a heart attack are greatly increased if you continue to smoke. For more information, call the education line for smoking cessation 9-040-AJAAKAN EAT A LOW FAT/CHOLESTEROL/SODIUM DIET: This diet may help reduce your chances of having a heart attack. LIFTING: With affected extremity: Avoid bending, pushing off and lifting more than 2 pounds for 24 hours The following 48 hours, avoid lifting anything more than 5 pounds Avoid strenuous activity or repetitive motions ACTIVITY: You may walk or climb stairs as tolerated You can resume sexual activity as tolerated In general, you are encouraged to engage in a minimum of 30 minutes or more of moderate intensity physical activity, such as brisk walking, daily or at least 3 -4 times weekly BATHING Do not submerge the site into water (bath tub, hot tub, swimming pool, dishes) for 1 week. This can be a source for infection into the blood stream. You may shower after 24 hours SITE CARE: After 24 hours, you may remove the dressing and leave the site open to air. Keep the site clean and dry. Clean gently and pat dry. You can expect bruising and tenderness that gradually resolve within a week or two. Return to work as instructed per your physician Resume driving as instructed per physician Keep all scheduled follow up appointments Resume medications as instructed IMPORTANT: If prescribed a Platelet Aggregation Inhibitor such as, Plavix, Brilinta or Effient: Duration of therapy is minimum one year These medications are often used in combination with Aspirin in prevention of future heart attacks Never discontinue unless consult with your Paramedic Rn STROKE (CVA) Risk factors for a stroke are: Age, cigarette smoking, diabetes, excessive alcohol consumption, family history, high blood pressure, overweight, physical inactivity, prior stroke, heart attack, diagnosis of carotid artery stenosis or other artery disease. Warning signs: Sudden numbness or weakness of the face, arm or leg; especially on one side of the body, sudden confusion, trouble speaking or understanding, sudden trouble seeing in one or both eyes, sudden trouble walking, dizziness, loss of balance or coordination, sudden severe headache with no cause. Call 911 or go to the Emergency Room. CONGESTIVE HEART FAILURE: If you have been diagnosed with Congestive Heart Failure (CHF) and your symptoms return, make an appointment with your physician Weigh yourself daily. Notify your physician if you have a weight gain of two or more pounds in one day or five or more pounds in one week. If you experience any difficulty breathing, please call 911 BLEEDING: Although the risk of bleeding is minimal, it can happen. If you have any bleeding from the site, apply firm pressure above the puncture site for 10-15 minutes. If the bleeding does not stop, continue manual pressure and call 911 Contact [facility] ( ) if: You develop a fever greater than 101 degrees Fahrenheit Your site becomes reddened or has any drainage You have an increase in pain or burning at the site or if a large knot forms at the site. If you experience chest pain, shortness of breath, dizziness, or extreme tiredness, stop the activity and rest. Please notify [facility] office if you experience any of these symptoms and they are not relieved by rest please call 911! - Diet and Activity Activity: increase activity as tolerated Diet: low fat, low cholesterol - Hospital Course Hospital course: Mr. Claudio is a 52 year old male with history of HTN and nicotine dependence - 1ppd - presented with retrosternal chest discomfort described as pressure minimally relieved with NTG/aspirin. It started at 5am yesterday, awakening him. He had associated dyspnea. EKG showed lateral STEMI and laborer airport maintenance team activated. C yesterday pt received PTCA/VANESA to mid LCx. There was residual 2 vessel disease--50% pLAD and 50% mLAD, 30% mRCA and right PDA. Troponin 0.33. Discussed importance of DAPT (ASA and Brilinta) uninterrupted x 1 year. Pt verbalizes understanding. Continue Statin, BB, CCB. Echo shows EF 55-60% with regional wall motion abnormalities, mild concentric LVH, no significant valvular disease. Pt denies complaints this AM, but reports he is leaving today , against medical advice. I have stressed the importance of staying one for night for monitoring, as he does have NSVT on tele, longest run 6 beats. I discussed outcomes of leaving AMA including being responsible for medical costs and outcomes such as worsening condition and . Pt verbalizes understanding and is leaving AMA. Right radial access site healing well. No bleeding, hematoma or ecchymosis noted. Will recommend pt follow-up in 1 week. Smoking cessation counseling given as well. Time spent discussing smoking cessation with patient: 3 to 10 minutes - Time Spent with Patient Total time spent providing and/or coordinating discharge services: Greater than 30 minutes Physical Examination Vital Signs, Last 4 Hours Temp Pulse Resp BP Pulse Ox 02/13/17 08:00 70 18 124/86 96 02/13/17 07:43 77 02/13/17 07:34 99.5 F 02/13/17 06:00 77 16 129/85 96 Vital Signs Temp Pulse Resp BP Pulse Ox 02/13/17 08:00 70 18 124/86 96 02/13/17 07:43 77 02/13/17 07:34 99.5 F 02/13/17 06:00 77 16 129/85 96 02/13/17 05:05 77 20 123/62 97 02/13/17 04:10 83 20 139/90 99 02/13/17 03:40 99.3 F 02/13/17 03:00 66 20 123/64 98 02/13/17 02:00 66 19 143/97 98 02/13/17 01:00 64 15 140/86 98 02/13/17 00:17 98.2 F 02/13/17 00:00 77 16 139/82 96 02/12/17 23:00 71 20 131/68 97 02/12/17 22:00 71 20 140/85 97 02/12/17 21:00 88 20 134/80 97 02/12/17 20:00 82 19 129/76 97 02/12/17 19:11 97 02/12/17 19:00 64 16 153/97 97 02/12/17 18:31 73 20 142/101 96 02/12/17 17:00 63 20 146/99 96 02/12/17 16:00 78 20 149/98 96 02/12/17 15:00 61 20 134/105 98 02/12/17 14:00 89 20 142/112 98 02/12/17 13:00 68 20 145/101 95 02/12/17 12:30 67 20 148/126 95 02/12/17 12:00 77 20 161/103 95 02/12/17 11:30 72 20 151/94 95 02/12/17 11:15 63 20 149/118 95 02/12/17 11:00 55 22 149/118 96 02/12/17 10:45 100.4 F H 61 16 147/89 99 Intake and Output 02/12/17 02/13/17 02/13/17 23:59 07:59 15:59 Intake Total 100 / 100 200 / 200 Output Total 1725 / 1725 Balance 100 / 100 -1525 / -1525 Intake: Oral 100 / 100 200 / 200 Output: Urine 1725 / 1725 Other: # Voids 1 Weight 98.1 kg Patient Weight 02/13/17 23:59 Weight 98.1 kg General: Conversant, No Apparent Distress HEENT: Atraumatic, Normocephaly, Mucus Membranes Moist Neck: No JVD, Normal carotid pulses Cardiac: Reg Rate and Rhythm, Normal S1 and S2, No Murmur Lungs: Normal Breath Sounds, No Wheeze, Rales, Rhonchi Neuro: Alert and responsive, No focal deficits noted Abdomen: Soft, Non-Tender Skin: Other (right radial access site healing well. No bleeding, hematoma or ecchysmosis noted.) Musculoskeletal: No Chest Wall Tenderness Extremities: No Clubbing, No Cyanosis, No Edema, Normal Pulses
--- NOTE | 2017-02-13 10:05 | Electrocardiograph Report ---
[address] [place], [place] [address] Test Date: 2017-02-12 Pat Name: Curtis Claudio Department: 109 Room: [facility] Gender: M Cost Clerk: : 1965 Requested By: Bhanu Grace Order Number: [id number] Reading MD: Bhanu Grace MD Measurements Intervals [place] Rate: 104 P: 220 OR: 165 QRS: 181 QRSD: 178 T: 15 QT: 418 QTc: 479 Interpretive Statements ACCELERATED IDIOVENTRICULAR RHYTHM Electronically Signed On 02-13-2017 10:03:54 EDT by Bhanu Grace MD
== END 2017-02-13 11:25 | disposition left against medical advice (07) | DRG 174 ==
LOC: EMEROO 08:56 → ICNU 09:33
PROVIDERS: ADMIT Emergency Medicine; ATTEND Emergency Medicine

== ENCOUNTER 2019-03-16 01:53 | Inpatient (IN) ==
[2019-03-16] MEDS ORDERED: *HR* Heparin 5,000 UNIT/ML VIAL ONE (01:59)
[2019-03-16] MEDS ORDERED: *HR* Ticagrelor 90 MG TABLET ONE (01:59)
[2019-03-16] MEDS ORDERED: Aspirin 81 MG TAB.CHEW ONE (01:59)
[2019-03-16] MEDS ORDERED: 0.9 % Sodium Chloride 1,000 ML ONE (02:00)
[2019-03-16] MEDS ORDERED: *HR* FentaNYL (PF) 100 MCG/2 ML VIAL ONE ×2 (02:03→02:44)
[2019-03-16] MEDS ORDERED: *HR* Ticagrelor 90 MG TABLET PO ONE (02:15)
[2019-03-16] MEDS ORDERED: 0.9 % Sodium Chloride 1,000 ML IVC SCH (02:15)
[2019-03-16] MEDS ORDERED: *HR* Heparin 10,000 UNIT/10 ML VIAL ONE (02:21)
[2019-03-16] MEDS ORDERED: Iopamidol 125 ML INFUS..BTL ONE ×2 (02:21→03:06)
[2019-03-16] MEDS ORDERED: 0.9 % Sodium Chloride 2,000 ML ONE (02:21)
[2019-03-16] MEDS ORDERED: Nitroglycerin 1,000 MCG/10 ML VIAL IV ONE (02:21)
[2019-03-16] MEDS ORDERED: Heparin 1,000 UNITS/500 mL 500 ML ONE (02:21)
[2019-03-16] MEDS ORDERED: *HR* FentaNYL (PF) 100 MCG/2 ML VIAL IVP ONE (02:22)
[2019-03-16] MEDS ORDERED: Verapamil 5 MG/2 ML VIAL ONE (02:25)
[2019-03-16] MEDS ORDERED: *HR* Midazolam HCl 2 MG/2 ML VIAL ONE (02:44)
[2019-03-16] MEDS ORDERED: Tirofiban 12.5 MG/250ML 12.5 MG/250 ML BAG ONE (03:11)
[2019-03-16] MEDS: 0.9 % Sodium Chloride 1,000 ML IV SCH ×2 (03:11→19:38)
[2019-03-16] MEDS ORDERED: Tirofiban 12.5 MG/250ML 12.5 MG/250 ML BAG IV SCH (04:00)
[2019-03-16] MEDS ORDERED: Acetaminophen 325 MG TABLET PO PRN (05:20)
[2019-03-16 05:45] LABS: Basophils # 0.1 K/mcL (0.0-0.2); Basophils % 0.6 %; Eosinophils # 0.1 K/mcL (0.0-0.6); Hematocrit 47.5 % (37.5-50.1); Hemoglobin 16.1 g/dL (12.9-16.9); Immature Granulocytes % 0.2 % (0-4); Immature Platelets 6.2 % (1.1-6.1); Lymphocytes # 3.1 K/mcL (0.6-4.6); Lymphocytes % 24.7 %; Mean Corpuscular HGB Conc 33.9 g/dL (31.6-35.5); Mean Corpuscular Hemoglobin 31.5 pg (28.0-33.3); Mean Platelet Volume 10.6 fL (9.4-12.4); Monocytes # 0.8 K/mcL (0.0-1.3); Monocytes % 6.7 %; Neutrophils # 8.4 K/mcL (1.6-8.9); Platelet Count 258 K/mcL (140-400); Red Blood Count 5.11 M/mcL (4.19-5.50); Red Cell Distribution Width 13.3 % (11.5-14.5); Segmented Neutrophils % 66.8 %; White Blood Count 12.5 K/mcL (4.3-11.1)
[2019-03-16 05:50] LABS: Activated Partial Thrombo Time 32.9 Seconds (26.0-36.0); INR 1.1; Prothrombin Time 12.6 Seconds (9.4-12.1)
[2019-03-16] MEDS ORDERED: Ondansetron 8 MG in 0.9 % Sodium Chloride 50 ML IVPB PRN (05:50)
[2019-03-16] MEDS ORDERED: Morphine Sulfate 2 MG/ML SYRINGE IV PRN (05:51)
[2019-03-16] MEDS ORDERED: Nitroglycerin 0.4 MG TAB.SUBL SL PRN (05:51)
[2019-03-16] MEDS ORDERED: *HR* OxyCODONE/APAP 5/325 TABLET PO PRN (05:52)
--- NOTE | 2019-03-16 07:17 | Pre-Sedation Evaluation ---
"Pre-sedation evaluation - Pre-sedation checklist Date of procedure: 03/16/19 Procedure: [facility] Recent Vitals: Last Vital Signs Temp 98.3 F 03/16/19 06:00 Pulse 67 03/16/19 06:00 Resp 10 03/16/19 06:00 BP 159/94 03/16/19 06:00 Pulse Ox 96 03/16/19 06:00 H&P (including ROS) documented in medical record: No Previous reaction to sedatives/anesthetics: Yes; explain in comment Dietary Status: NPO after Midnight Airway Assessment: Patient can open mouth completely, TMJ function normal ASA Classification *see protocol: CLASS V-Morbid complications, operation only hope of survival, [id number] to any of the above to indicate emergent Plan of Care: Pt appropriate candidate for procedure/moderate/conscious sedation, Risks/benefits of procedure/sedation discussed w/ patient/family, If not NPO; Risk of intake outweiged by necessity to perform procedure Cardiac Registry (Cardio Only) - Functional Capacity Functional Capacity: >=4 METS with symptoms - Clincal Frailty Scale Clinical Frailty Scale: Managing Well (late entry - Traveler | VIP scheduled downtime)"
--- NOTE | 2019-03-16 07:19 | Cardiology History & Physical ---
Date of Encounter: 03/16/19 Time of Encounter: 07:20 Assessment and Plan (1) STEMI (ST elevation myocardial infarction) Current Visit: No Status: Acute A/R/B of emergent [facility] dw patient including 1% risk of IN//CVA/CABG/FRANKY/bleeding/anaphylaxis. HE is aware yvette greeable with proceeding. EF assessment to be completed, DAPT, heparin, cardaic rehab, smoking cessation. Total critical care time: 90 minutes The assessment and plan as outlined above was discussed with the patient and/or family members who expressed understanding and agreement. All questions were answered. Qualifiers: Involved coronary artery: right coronary artery Qualified Code(s): I21.11 - ST elevation (STEMI) myocardial infarction involving right coronary artery (2) Nicotine dependence Current Visit: No Status: Acute The assessment and plan as outlined above was discussed with the patient and/or family members who expressed understanding and agreement. All questions were answered. smoking cessation Qualifiers: Nicotine product type: cigarettes Substance use status: uncomplicated Qualified Code(s): F17.210 - Nicotine dependence, cigarettes, uncomplicated (3) HTN (hypertension) Current Visit: No Status: Acute The assessment and plan as outlined above was discussed with the patient and/or family members who expressed understanding and agreement. All questions were answered. controlled Qualifiers: Hypertension type: essential hypertension Qualified Code(s): I10 - Essential (primary) hypertension History of Present Illness Chief complaint: left shoulder pain HPI: Mr. Claudio is a 54 year old male w history of CAD sp PCI LCx presents with left shoulder pain intermittent for a couple of days worsening tonight over last few hours to 10/10 and findings of inferior STEMI on EMS EKG. No improvement with aspirin, NTG. Associated with mild dyspnea. Past Med Surg Social Fam HX - Past Medical History Medical history: coronary artery disease, hyperlipidemia, hypertension, myocardial infarction Psychiatric history: anxiety - Past Surgical History Additional surgical history: [place] teeth removal this year. 1 cardiac stent - Social History Smoking Status: Current every day smoker Packs per day: 1 Smokeless Tobacco Status: No Alcohol use: none Drug use: none - Family History Mother Living Status: Father Hx Family Cardiac Disorders: Yes Medications and Allergies Aspirin 81 mg PO DAILY #30 02/13/17 [Rx] Carvedilol [Coreg] 6.25 mg PO BIDWM #60 tab 02/13/17 [Rx] Nitroglycerin 0.4 mg SL Q5MIN PRN #30 02/13/17 [Rx] Rosuvastatin [Crestor] 40 mg PO HS #30 tab 02/13/17 [Rx] Ticagrelor [Brilinta] 90 mg PO BID #60 tab 02/13/17 [Rx] amLODIPine [Norvasc] 5 mg PO DAILY #30 tab 02/13/17 [Rx] Allergy/AdvReac Type Severity Reaction Status Date / Time No Known Allergies Allergy Verified 10/13/17 08:26 All Systems Review: The remainder of the systems were reviewed and are negative - Constitutional Constitutional: no chills, no fever(s) - EENT Eyes: no blurred vision, no loss of vision Nose, mouth and throat: no bleeding gums, no dysphagia - Cardiovascular Cardiovascular: chest pain at rest - Respiratory Respiratory: no hemoptysis, no wheezing - Gastrointestinal Gastrointestinal: no hematemesis, no hematochezia - Genitourinary Genitourinary: no hematuria, no nocturia - Musculoskeletal Musculoskeletal: no muscle cramps, no muscle weakness - Integumentary Integumentary: no rash, no unusual bruising - Neurological Neurological: no loss of vision, no memory loss - Psychiatric Psychiatric: no hallucinations, no panic attacks - Hematological/Lymphatic Hematologic/Lymphatic: no easy bleeding, no easy bruising Physical Examination Vital Signs, Last 4 Hours Temp Pulse Pulse Resp BP Pulse Ox 03/16/19 06:00 98.3 F 67 10 159/94 96 03/16/19 05:15 70 70 General: Conversant Neck: No JVD Cardiac: Reg Rate and Rhythm Lungs: Normal Breath Sounds Neuro: Alert and responsive Abdomen: Soft Skin: No rashes noted on visualized skin Musculoskeletal: No Chest Wall Tenderness Extremities: No Edema Results 03/16/19 02:00 Lab Results 03/16/19 03/16/19 02:00 02:00 WBC 12.5 H Hgb 16.1 Hct 47.5 Plt Count 258 INR 1.1 APTT 32.9 - EKG Interpretation EKG results cardiology: personally reviewed, sinus rhythm (inferior current of injury)
--- NOTE | 2019-03-16 07:25 | Event Note ---
Date of Encounter: 03/16/19 Time of Encounter: 07:20 - Cardiology Event Note EF nml 50% inf HK RCA 100% distal sp PCI. Severe small vessel disease in the PLB and distal LAD. No further intervention needed at this time.
--- NOTE | 2019-03-16 07:30 | Emergency Department Note ---
Disposition Clinical Impression: STEMI (ST elevation myocardial infarction) Qualifiers: Involved coronary artery: right coronary artery Qualified Code(s): I21.11 - ST elevation (STEMI) myocardial infarction involving right coronary artery Disposition: Admitted As Inpatient Time of Disposition: 07:31 General Adult HPI - General Chief complaint: ED Chest Pain Stated complaint: Stemi Alert Time Seen by Provider: 03/16/19 05:43 Source: patient, EMS Mode of arrival: EMS Limitations: no limitations Nursing Notes Reviewed: Yes Vital Signs Reviewed: Yes - History of Present Illness HPI Narrative: 54M with PMHx cardiac stent presents for chest pain has been going on for the past 3 days but worse this evening. He tried nitroglycerin at home with minimal improvement in pain took a full dose of aspirin and called EMS. Had an IV placed and EMS. EMS transmitted EKG and patients transport which was concerning for an inferior STEMI. Pain Scale: 0 - Related Data Previous Rx's Medication Instructions Recorded Aspirin 81 mg PO DAILY #30 02/13/17 Carvedilol [Coreg] 6.25 mg PO BIDWM #60 tab 02/13/17 Nitroglycerin 0.4 mg SL Q5MIN PRN #30 02/13/17 Rosuvastatin [Crestor] 40 mg PO HS #30 tab 02/13/17 Ticagrelor [Brilinta] 90 mg PO BID #60 tab 02/13/17 amLODIPine [Norvasc] 5 mg PO DAILY #30 tab 02/13/17 Allergies Allergy/AdvReac Type Severity Reaction Status Date / Time No Known Allergies Allergy Verified 10/13/17 08:26 All systems ED: reviewed and negative except as stated. Review of Systems: As Per HPI Constitutional: Reports: chills Cardiovascular: Reports: chest pain, dyspnea on exertion. Denies: edema Respiratory: Reports: dyspnea Gastrointestinal: Denies: nausea Past Medical History - Past Medical History Attestation: Yes The following information was validated with the patient. Medical history: Reports: coronary artery disease, hyperlipidemia, hypertension, myocardial infarction Psychiatric history: Reports: anxiety - Social History Smoking Status: Current every day smoker Smokeless Tobacco Status: No Alcohol use: Reports: none Drug use: Reports: none Physical Exam - General Limitations: no limitations General appearance: alert Course Course Narrative: STEMI alert was activated prior to patients arrival. His EKG performed on arrival to the ED was done at 1:[address]ations in the inferior leads with reciprocal changes in the precordial leads. History of fentanyl given that his inferior [place]. He is otherwise in no acute distress and he medically stable. Services Program Manager was activated. Vital Signs Temperature 98.2 F 03/16/19 01:54 Pulse Rate 79 03/16/19 01:54 Respiratory Rate 18 03/16/19 01:54 Blood Pressure 145/100 03/16/19 01:54 O2 Sat by Pulse Oximetry 95 03/16/19 01:54 Temperature 98.3 F 03/16/19 06:00 Pulse Rate 67 03/16/19 07:00 Respiratory Rate 20 03/16/19 07:00 Blood Pressure 148/96 03/16/19 07:00 O2 Sat by Pulse Oximetry 98 03/16/19 07:00 Oxygen Delivery Oxygen Delivery Room Air Medical Decision Making - Medical Records Medical records reviewed: Yes I reviewed the patient's medical records. - Lab Data Lab results reviewed: Yes I reviewed the patient's lab results. Result diagrams: 03/16/19 02:00 - Radiology Data Radiology results reviewed: Yes I reviewed the patient's radiology results. - EKG Data EKG #1 EKG attestation: Yes I reviewed and interpreted this EKG. EKG results narrative: EKG done at 1:58 sinus rhythm at a rate of [address] elevations in the inferior leads with reciprocal changes in the precordial leads
[2019-03-16 07:38] LABS: BUN/Creatinine Ratio 12 (6-26); Blood Urea Nitrogen 11 mg/dL (6-20); Calcium 9.3 mg/dL (8.6-10.3); Carbon Dioxide 20 mEq/L (23-29); Chloride 105 mEq/L (98-107); Glucose 157 mg/dL (70-105); Osmolality,Calculated 291 (280-300); Potassium 3.8 mEq/L (3.5-5.1); Sodium 139 mEq/L (136-145); Troponin I 0.38 ng/mL (< 0.04); eGFR For African Americans > 60 (> 60); eGFR For Non-African Americans > 60 (> 60)
[2019-03-16] MEDS: Aspirin 81 MG TAB.CHEW PO SCH (09:27)
[2019-03-16] MEDS ORDERED: *HR* Atropine Sulfate 1 MG/10 ML SYRINGE ONE (09:35)
--- NOTE | 2019-03-16 11:50 | Event Note ---
Date of Encounter: 03/16/19 Time of Encounter: 11:30 - Cardiology Event Note Seen and examined. s/p sheath pull--right femoral cath site C/D/I. Acute inferior STEMI s/p PCI to RCA; remaining severe small vessel CAD, medical therapy recommended. Mild right shoulder pain reported, significantly improved from admission. Labs, vital stable. Will add Nicotine replacement therapy. VTE prophylaxis: Heparin 5000 SC Q12H. Anticipate step down out of ICU in AM if stable.
[2019-03-16] MEDS: Nicotine 21 MG PATCH.TD24 TD SCH (12:27)
[2019-03-16] MEDS: *HR* Ticagrelor 90 MG TABLET PO SCH ×2 (12:28→22:09)
[2019-03-16] MEDS ORDERED: Perflutren Lipid Microsphere 1.3 ML in 0.9 % Sodium Chloride 8.7 ML IVP ONE (13:35)
[2019-03-16] MEDS: *HR* Heparin 5,000 UNIT/ML VIAL SQ SCH (17:39)
[2019-03-17 04:04] LABS: Basophils # 0.1 K/mcL (0.0-0.2); Basophils % 0.5 %; Eosinophils # 0.1 K/mcL (0.0-0.6); Eosinophils % 0.6 %; Hematocrit 43.8 % (37.5-50.1); Hemoglobin 14.3 g/dL (12.9-16.9); Immature Granulocytes % 0.4 % (0-4); Lymphocytes # 3.4 K/mcL (0.6-4.6); Lymphocytes % 31.2 %; Mean Corpuscular HGB Conc 32.6 g/dL (31.6-35.5); Mean Corpuscular Hemoglobin 30.4 pg (28.0-33.3); Mean Platelet Volume 10.6 fL (9.4-12.4); Monocytes # 0.8 K/mcL (0.0-1.3); Monocytes % 7.1 %; Neutrophils # 6.5 K/mcL (1.6-8.9); Platelet Count 210 K/mcL (140-400); Red Blood Count 4.71 M/mcL (4.19-5.50); Red Cell Distribution Width 13.5 % (11.5-14.5); Segmented Neutrophils % 60.2 %; White Blood Count 10.8 K/mcL (4.3-11.1)
[2019-03-17] MEDS: *HR* Heparin 5,000 UNIT/ML VIAL SQ SCH ×2 (06:01→17:34)
[2019-03-17] MEDS: Nicotine 21 MG PATCH.TD24 TD SCH (07:36)
[2019-03-17] MEDS: *HR* Ticagrelor 90 MG TABLET PO SCH (07:36)
[2019-03-17] MEDS: Aspirin 81 MG TAB.CHEW PO SCH (07:36)
--- NOTE | 2019-03-17 10:50 | Cardiology Progress Note ---
Date of Encounter: 03/17/19 Time of Encounter: 10:48 Assessment and Plan (1) STEMI (ST elevation myocardial infarction) Current Visit: Yes Status: Acute Acute inferior STEMI s/p PCI to RCA 03/16; remaining severe small vessel CAD, medical therapy recommended. Final report pending. Troponin 0.38. DAPT (ASA and Brilinta) currently, uninterrupted x 1 year. Pt verbalizes understanding. Pt currently does not have insurance. Will switch Brilinta to Plavix tomorrow with 300mg load, then 75mg daily. Will also consult social work. On Statin. Add low dose BB. Labs, vital stable. TTE LVEF 45-50%. LV segmental wall motion abnormality. Mild LVDD. RV structure is not optimally visualized. Systolic function is normal by Tissue Doppler and low normal by TAPSE. Mild mitral regurgitation. Mild tricuspid regurgitation. No pulmonary hypertension. Right femoral access site healing well. No bleeding or hematoma. Moderate ecchymosis. Cardiac rehab ordered. VTE prophylaxis: Heparin 5000 SC Q12H. Will step down out of ICU. If stable tomorrow, anticipate d/c home. Qualifiers: Involved coronary artery: right coronary artery Qualified Code(s): I21.11 - ST elevation (STEMI) myocardial infarction involving right coronary artery (2) Nicotine dependence Current Visit: No Status: Acute Smoking cessation counseling given. Nicotine patch inpt Qualifiers: Nicotine product type: cigarettes Substance use status: uncomplicated Qualified Code(s): F17.210 - Nicotine dependence, cigarettes, uncomplicated (3) CAD (coronary artery disease) Current Visit: No Status: Acute As above. ASA, switch Brilinta to Plavix, Statin, BB. Qualifiers: Coronary Disease-Associated Artery/Lesion type: [place] artery [place] vs. transplanted heart: [place] heart Associated angina: angina presence unspecified Qualified Code(s): I25.10 - Atherosclerotic heart disease of [place] coronary artery without angina pectoris Discussion w patient/family: The assessment and plan as outlined above was discussed with the patient and/or family members who expressed understanding and agreement. All questions were answered. Thank you for involving us in the care of your patient. Please call with any questions. I will discuss all the above with Dr. Kaur and make changes as necessary. Subjective Principal diagnosis: STEMI Interval history: No complaints this AM. Denies chest pain or dyspnea. Objective Vital Signs, Last 4 Hours Temp Pulse Resp BP Pulse Ox 03/17/19 10:00 88 13 97 03/17/19 09:00 79 19 135/86 97 03/17/19 08:51 98.9 F 03/17/19 08:00 71 17 132/86 97 03/17/19 07:00 61 13 137/87 97 Vital Signs Temp Pulse Resp BP Pulse Ox 03/17/19 10:00 88 13 97 03/17/19 09:00 79 19 135/86 97 03/17/19 08:51 98.9 F 03/17/19 08:00 71 17 132/86 97 03/17/19 07:00 61 13 137/87 97 03/17/19 06:00 61 12 103/8 94 03/17/19 05:00 61 16 120/86 97 03/17/19 04:00 62 14 137/84 97 03/17/19 03:45 98.7 F 03/17/19 03:00 70 22 122/80 95 03/17/19 02:00 69 20 117/78 96 03/17/19 01:00 56 20 122/78 98 03/17/19 00:01 98.9 F 03/17/19 00:00 65 18 126/74 98 03/16/19 23:00 67 18 117/79 97 03/16/19 22:00 74 18 115/81 97 03/16/19 21:00 76 16 95 03/16/19 20:00 74 18 95 03/16/19 19:46 98.6 F 03/16/19 19:00 98.6 F 66 11 123/79 95 03/16/19 18:00 71 14 135/79 97 03/16/19 17:00 74 17 127/80 97 03/16/19 16:14 99.0 F 03/16/19 16:00 74 17 143/89 95 03/16/19 15:00 60 12 143/81 97 03/16/19 14:00 68 13 140/88 97 03/16/19 13:00 77 18 151/88 96 03/16/19 12:29 98.5 F 03/16/19 12:00 58 12 140/91 98 03/16/19 11:00 59 20 151/91 97 Intake and Output 03/16/19 03/17/19 03/17/19 23:59 07:59 15:59 Intake Total 1000 / 1065 350 / 350 Output Total 300 / 850 1050 / 1050 Balance 700 / 215 -700 / -700 Intake: IV Fluids 1000 / 1065 350 / 350 0.9 % Sodium Chloride 1,000 ML 1000 / 1000 350 / 350 @ 75 mls/hr IV .[id number] LEANA Rx# :[id number] Output: Urine 300 / 850 1050 / 1050 Catheter 0 / 0 Other: Meal Breakfast Percent of Meal Consumed 75% Stool Size Moderate Stool Consistency formed # Bowel Movements 2 Weight 92.1 kg Blood Glucose* 111 Patient Weight 03/17/19 23:59 Weight 92.1 kg General: Conversant, No Apparent Distress HEENT: Atraumatic, Normocephaly, Mucus Membranes Moist Neck: No JVD, Normal carotid pulses Cardiac: Reg Rate and Rhythm, Normal S1 and S2, No Murmur Lungs: Normal Breath Sounds, No Wheeze, Rales, Rhonchi Neuro: Alert and responsive, No focal deficits noted Abdomen: Soft, Non-Tender Skin: Other (right femoral access site healing well. No bleeding or hematoma. Moderate ecchymosis.) Musculoskeletal: No Chest Wall Tenderness Extremities: No Clubbing, No Cyanosis, No Edema, Normal Pulses Results 03/17/19 03:29 03/16/19 02:00 Lab Results 03/17/19 03:29 WBC 10.8 Hgb 14.3 D Hct 43.8 Plt Count 210 Short CBC 03/17/19 Range/Units 03:29 WBC 10.8 (4.3-11.1) K/mcL Hgb 14.3 D (12.9-16.9) g/dL Hct 43.8 (37.5-50.1) % Plt Count 210 (140-400) K/mcL Neutrophils # 6.5 (1.6-8.9) K/mcL Impressions Echocardiogram 03/16/19 07:05 Impressions: LVEF 45-50%. LV segmental wall motion abnormality. Mild left ventricular diastolic dysfunction. Right ventricular structure is not optimally visualized. Systolic function is normal by Tissue Doppler and low normal by TAPSE. Mild mitral regurgitation. Mild tricuspid regurgitation. No pulmonary hypertension. Left Ventricular Wall Motion: Rest Echo Findings The mid inferior, basal inferior, mid inferior lateral and basal inferior lateral [place] were hypokinetic. All other wall segments showed normal motion. Findings: Study Quality * Technically adequate exam. ECG Findings * Normal sinus rhythm. Left Ventricle * LVEF 45-50%. * Mild left ventricular diastolic dysfunction. * LV chamber size and wall thickness are normal. Right Ventricle * Right ventricular structure is not optimally visualized. Systolic function is normal by Tissue Doppler and low normal by TAPSE. Left Atrium * Normal left atrial size. Right Atrium * Normal right atrial size. Aortic Valve * No aortic regurgitation. * Aortic valve not well visualized. * No aortic stenosis. Mitral Valve * Normal mitral valve structure. * No mitral stenosis. * Mild mitral regurgitation. Tricuspid Valve * Tricuspid valve not well visualized. * Mild tricuspid regurgitation. * Estimated RA pressure is 3 mmHg. Pulmonic Valve * Pulmonic valve is not well visualized. * No pulmonic stenosis. * No pulmonic regurgitation. Pulmonary Artery * Pulmonary artery not well visualized. Aorta * Not well visualized. Pericardium * There is no pericardial effusion present. Interatrial Septum * No evidence of PFO by color Doppler. IVC * The IVC is not dilated. Active Medications Acetaminophen (Tylenol) 500 mg PO Q6HR PRN PRN Reason: Mild Pain Stop: 09/15/19 07:26 Aspirin (Aspirin) 81 mg PO DAILY [facility] Stop: 09/15/19 09:01 Last Admin: 03/17/19 07:36 Dose: 81 mg Documented by: Atorvastatin Calcium (Lipitor) 80 mg PO HS [facility] Stop: 09/15/19 21:01 Last Admin: 03/16/19 22:09 Dose: 80 mg Documented by: Diphenhydramine HCl (Benadryl) 25 mg PO HS PRN PRN Reason: Insomnia Stop: 09/15/19 05:50 Heparin Sodium (Porcine) (Heparin) 5,000 unit SQ Q12HCO [facility]; Protocol Stop: 09/15/19 18:01 Last Admin: 03/17/19 06:01 Dose: 5,000 unit Documented by: Hydralazine HCl (Hydralazine) 10 mg IVP Q6H PRN PRN Reason: Hypertension BP>160/90 Stop: 09/15/19 05:20 Ondansetron HCl 8 mg/ Sodium (Chloride) 54 mls @ 216 mls/hr IVPB Q8H PRN PRN Reason: NAUSEA/VOMITING Stop: 09/15/19 05:51 Sodium Chloride (0.9 % Sodium Chloride) 1,000 mls @ 75 mls/hr IV .[id number] [facility] Stop: 09/15/19 06:01 Last Infusion: 03/17/19 06:04 Dose: Infused Documented by: Morphine Sulfate (Morphine) 1 mg IV Q4H PRN PRN Reason: SEVERE PAIN Stop: 09/15/19 05:52 Nicotine (Nicoderm) 21 mg TD DAILY [facility]; Protocol Stop: 09/15/19 09:01 Last Admin: 03/17/19 07:36 Dose: Not Given Documented by: Nitroglycerin (Nitroglycerin) 0.4 mg SL Q5MPRN PRN PRN Reason: CHEST PAIN Stop: 09/15/19 05:52 Oxycodone/Acetaminophen (Percocet 5/325) 1 each PO Q6H PRN PRN Reason: MODERATE PAIN Stop: 09/15/19 05:53 Ticagrelor (Brilinta) 90 mg PO BID [facility] Stop: 09/15/19 12:01 Last Admin: 03/17/19 07:36 Dose: 90 mg Documented by: - Imaging and Cardiology Echo: report reviewed Cardiac cath: report reviewed Consult Discharge Plan - Plan Referrals: NONE,PCP [Primary Care Provider] -
[2019-03-17] MEDS ORDERED: Ondansetron 8 MG in 0.9 % Sodium Chloride 50 ML IVPB PRN (11:24)
[2019-03-17] MEDS ORDERED: *HR* OxyCODONE/APAP 5/325 TABLET PO PRN (11:24)
[2019-03-17] MEDS ORDERED: Nitroglycerin 0.4 MG TAB.SUBL SL PRN (11:24)
[2019-03-17] MEDS: 0.9 % Sodium Chloride 1,000 ML IV SCH (14:47)
[2019-03-17] MEDS ORDERED: *HR* Ticagrelor 90 MG TABLET PO SCH (21:00)
[2019-03-18 02:30] LABS: Basophils # 0.1 K/mcL (0.0-0.2); Basophils % 0.7 %; Eosinophils # 0.2 K/mcL (0.0-0.6); Eosinophils % 1.9 %; Hematocrit 44.3 % (37.5-50.1); Hemoglobin 14.5 g/dL (12.9-16.9); Immature Granulocytes % 0.3 % (0-4); Mean Corpuscular HGB Conc 32.7 g/dL (31.6-35.5); Mean Corpuscular Hemoglobin 30.9 pg (28.0-33.3); Mean Corpuscular Volume 94.3 fL (83.0-100.0); Mean Platelet Volume 10.8 fL (9.4-12.4); Monocytes # 0.9 K/mcL (0.0-1.3); Monocytes % 9.7 %; Platelet Count 227 K/mcL (140-400); Red Cell Distribution Width 13.3 % (11.5-14.5); Segmented Neutrophils % 54.4 %; White Blood Count 8.9 K/mcL (4.3-11.1)
[2019-03-18 02:48] LABS: BUN/Creatinine Ratio 16 (6-26); Blood Urea Nitrogen 13 mg/dL (6-20); Calcium 9.2 mg/dL (8.6-10.3); Carbon Dioxide 23 mEq/L (23-29); Chloride 106 mEq/L (98-107); Glucose 99 mg/dL (70-105); Osmolality,Calculated 284 (280-300); Potassium 4.5 mEq/L (3.5-5.1); Sodium 137 mEq/L (136-145); eGFR For African Americans > 60 (> 60); eGFR For Non-African Americans > 60 (> 60)
[2019-03-18 03:02] LABS: Lymphocytes # 2.9 K/mcL (0.6-4.6); Neutrophils # 4.8 K/mcL (1.6-8.9)
[2019-03-18 03:03] LABS: Platelet Estimate Normal (Normal)
[2019-03-18] MEDS: *HR* Heparin 5,000 UNIT/ML VIAL SQ SCH (05:44)
[2019-03-18 07:34] VITALS: BP 127/75
[2019-03-18] MEDS ORDERED: Aspirin 81 MG TAB.CHEW PO SCH (09:00)
[2019-03-18] MEDS ORDERED: Nicotine 21 MG PATCH.TD24 TD SCH (09:00)
--- NOTE | 2019-03-18 11:13 | Discharge Summary ---
Date of Encounter: 03/18/19 Time of Encounter: 11:00 - Discharge Diagnosis (1) STEMI (ST elevation myocardial infarction) Priority: Primary Status: Acute Qualifiers: Involved coronary artery: right coronary artery Qualified Code(s): I21.11 - ST elevation (STEMI) myocardial infarction involving right coronary artery (2) CAD (coronary artery disease) Priority: Primary Status: Acute Qualifiers: Coronary Disease-Associated Artery/Lesion type: [place] artery [place] vs. transplanted heart: [place] heart Associated angina: angina presence unspecified Qualified Code(s): I25.10 - Atherosclerotic heart disease of [place] coronary artery without angina pectoris (3) Nicotine dependence Priority: Secondary Status: Chronic Qualifiers: Nicotine product type: cigarettes Substance use status: uncomplicated Qualified Code(s): F17.210 - Nicotine dependence, cigarettes, uncomplicated (4) HTN (hypertension) Priority: Secondary Status: Acute Qualifiers: Hypertension type: essential hypertension Qualified Code(s): I10 - Essential (primary) hypertension - Hospital Course Hospital course: Mr. Claudio is a 54 year old male with past medical history of CAD s/p RI in 2017, HTN, and nicotine dependence who presented with chest pain. He was found to have acute inferior STEMI s/p PCI to RCA 03/16; remaining severe small vessel CAD, medical therapy recommended. Troponin elevation up to 0.38. Importance of DAPT(ASA and plavix) uninterrupted x 1 year reviewed with patient. Pt verbalizes understanding. Pt currently does not have insurance and is working with SS. Brilinta switched to Plavix with 300mg load, then 75mg daily. On Statin and bb. TTE completed shows LVEF 45-50%. LV segmental wall motion abnormality. Mild LVDD. RV structure is not optimally visualized. Systolic function is normal by Tissue Doppler and low normal by TAPSE. Mild mitral regurgitation. Mild tricuspid regurgitation. No pulmonary hypertension. Right femoral access site healing well. Large area of ecchymosis noted in groin and scrotum without hematoma. No bleeding . Cardiac rehab ordered. He is ready for discharge with close out-pt f/u. - Time Spent with Patient Total time spent providing and/or coordinating discharge services: - Discharge Medications Prescriptions: New Aspirin 81 mg PO DAILY #30 tab.chew Atorvastatin [Lipitor] 80 mg PO HS #30 tablet Metoprolol [Lopressor] 25 mg PO BID #60 tablet Nicotine Patch [Nicoderm] 21 mg TD DAILY 14 Days #14 patch.td24 Nitroglycerin 0.4 mg SL Q5MPRN PRN #25 tab.subl PRN Reason: CHEST PAIN Clopidogrel [Plavix] 75 mg PO DAILY #30 tablet Home Medications: Aspirin 81 mg PO DAILY #30 tab.chew 03/18/19 [Rx] Atorvastatin [Lipitor] 80 mg PO HS #30 tablet 03/18/19 [Rx] Clopidogrel [Plavix] 75 mg PO DAILY #30 tablet 03/18/19 [Rx] Metoprolol [Lopressor] 25 mg PO BID #60 tablet 03/18/19 [Rx] Nicotine Patch [Nicoderm] 21 mg TD DAILY 14 Days #14 patch.td24 03/18/19 [Rx] Nitroglycerin 0.4 mg SL Q5MPRN PRN #25 tab.subl 03/18/19 [Rx] Allergies/Adverse Reactions: Allergy/AdvReac Type Severity Reaction Status Date / Time No Known Allergies Allergy Verified 03/16/19 13:56 Date of admission: 03/16/19 02:00 Primary care physician: PCP NONE Consults: 03/16/19 07:25 Consult to Cardiac Rehabilitation-Phase1 [CONS] Routine Comment: Reason for Consult: AMI Call Completed: Yes Consult to Nurse Navigator [CONS] Routine Comment: 03/17/19 10:56 Consult to Pill Maker [CONS] Routine Reason for SW Consult: no insurance Physical Examination Vital Signs, Last 4 Hours Temp Pulse Resp BP Pulse Ox 03/18/19 07:30 98.4 F 54 20 127/75 97 General: Conversant, No Apparent Distress HEENT: Atraumatic, Normocephaly, Mucus Membranes Moist Neck: No JVD, Normal carotid pulses Cardiac: Reg Rate and Rhythm, Normal S1 and S2, No Murmur Lungs: Normal Breath Sounds, No Wheeze, Rales, Rhonchi Neuro: Alert and responsive, No focal deficits noted Abdomen: Soft, Non-Tender Skin: No rashes noted on visualized skin Musculoskeletal: No Chest Wall Tenderness Extremities: No Clubbing, No Cyanosis, No Edema, Normal Pulses - Patient Status Disposition: Home, Self-Care Condition: Good Functional capacity at discharge: independent ambulation Overall status at discharge: patient is progressing back to baseline - Discharge Instructions Follow Up With: NONE,PCP [Primary Care Provider] - Bhanu Grace MD [Partnered Physician] - Forms: ED Satisfaction Letter Additional Instructions: RISK FACTORS: STOP SMOKING: If you smoke, STOP. Smoking or tobacco use significantly increases your risk of heart disease because nicotine causes the arteries to narrow or constrict. It also causes fats to stick to the artery. Your chances of having a heart attack are greatly increased if you continue to smoke. For more information, call the education line for smoking cessation 3-494-VUHSMCE EAT A LOW FAT/CHOLESTEROL/SODIUM DIET: This diet may help reduce your chances of having a heart attack. LIFTING: Avoid lifting anything more than 10 pounds for 5-7 days Prior to straining, laughing, sneezing and/or coughing, apply manual pressure directly over insertion site. ACTIVITY: You may walk or climb stairs as tolerated You can resume sexual activity as tolerated In general, you are encouraged to engage in a minimum of 30 minutes or more of moderate intensity physical activity, such as brisk walking, daily or at least 3-4 times weekly BATHING Do not submerge the site into water (bath tub, hot tub, swimming pool) for 1 week. This can be a source for infection into the blood stream. You may shower after 24 hours SITE CARE: After 24 hours, you may remove the dressing and leave the site open to air. Keep the site clean and dry. Clean gently and pat dry. You can expect bruising and tenderness that gradually resolve within a week or two. Return to work as instructed per your physician Resume driving as instructed per physician Keep all scheduled follow up appointments Resume medications as instructed IMPORTANT: If prescribed a Platelet Aggregation Inhibitor such as, Plavix, Brilinta or Effient: Duration of therapy is minimum one year These medications are often used in combination with Aspirin in prevention of future heart attacks Never discontinue unless consult with your Dental Surgery Doctor STROKE (CVA) Risk factors for a stroke are: Age, cigarette smoking, diabetes, excessive alcohol consumption, family history, high blood pressure, overweight, physical inactivity, prior stroke, heart attack, diagnosis of carotid artery stenosis or other artery disease. Warning signs: Sudden numbness or weakness of the face, arm or leg; especially on one side of the body, sudden confusion, trouble speaking or understanding, sudden trouble seeing in one or both eyes, sudden trouble walking, dizziness, loss of balance or coordination, sudden severe headache with no cause. Call 911 or go to the Emergency Room. CONGESTIVE HEART FAILURE: If you have been diagnosed with Congestive Heart Failure (CHF) and your symptoms return, make an appointment with your physician Weigh yourself daily. Notify your physician if you have a weight gain of two or more pounds in one day or five or more pounds in one week. If you experience any difficulty breathing, please call 911 BLEEDING: Although the risk of bleeding is minimal, it can happen. If you have any bleeding from the site, apply firm pressure above the puncture site for 10-15 minutes. If the bleeding does not stop, continue manual pressure and call 911 CARDIAC REHABILITATION: If you have had a heart attack or cardiac stents placed, please ask your novelty maker if Cardiac Rehabilitation is right for you. Cardiac Rehabilitation is recommended, beneficial to your health and can improve the following: strengthen your heart, improve ejection fraction, weight reduction, decrease cholesterol levels, lower blood pressure, lower blood sugar, improve stamina and enhance self-image. If you have any questions please call [facility] at [phone]. Contact your physician if: You develop a fever greater than 101 degrees Fahrenheit Your site becomes reddened or has any drainage You have an increase in pain or burning at the site or if a large knot forms at the site. If you experience chest pain, shortness of breath, dizziness, or extreme tiredness, stop the activity and rest. Please notify your physicians office if you experience any of these symptoms and they are not relieved by rest please call 911! - Diet and Activity Activity: increase activity as tolerated Diet: low fat, low cholesterol
--- NOTE | 2019-03-18 12:36 | Electrocardiograph Report ---
[address] [place], [place] [address] Test Date: 2019-03-16 Pat Name: Curtis Claudio Department: EXAM3 Room: 2NE22 Gender: M Drive Away Driver: : 1965 Requested By: Jorge Barrientos Order Number: [id number] Reading MD: Bhanu Grace Measurements Intervals [place] Rate: 82 P: 46 [place]: 157 QRS: 41 QRSD: 91 T: 88 QT: 366 QTc: 428 Interpretive Statements Sinus rhythm left atrial enlargement Inferoposterior infarct, acute (RCA) Lateral leads are also involved Probable RV involvement, suggest recording right precordial leads Electronically Signed On 03-18-2019 12:35:30 EDT by Bhanu Grace
--- NOTE | 2019-03-18 12:39 | Electrocardiograph Report ---
[address] [place], [place] [address] Test Date: 2019-03-16 Pat Name: Curtis Claudio Department: 109 Room: 2NE22 Gender: M Otologist: : 1965 Requested By: Bhanu Grace Order Number: [id number] Reading MD: Bhanu Grace Measurements Intervals [place] Rate: 86 P: MD: 0 QRS: -65 QRSD: 149 T: 87 QT: 406 QTc: 450 Interpretive Statements IDIOVENTRICULAR RHYTHM MINIMAL VOLTAGE CRITERIA FOR LVH, CONSIDER NORMAL VARIANT INFERIOR MYOCARDIAL INFARCTION, AGE UNDETERMINED ANTEROLATERAL MYOCARDIAL INFARCTION, PROBABLY RECENT Electronically Signed On 03-18-2019 12:37:34 EDT by Bhanu Grace
--- NOTE | 2019-03-18 14:09 | Electrocardiograph Report ---
[address] [place], [place] [address] Test Date: 2019-03-18 Pat Name: Curtis Claudio Department: 111 Room: 2NE22 Gender: M Change Advisor: : 1965 Requested By: Domenico Shelby Order Number: [id number] Reading MD: Bhanu Grace Measurements Intervals [place] Rate: 59 P: 26 NE: 164 QRS: -28 QRSD: 97 T: -59 QT: 426 QTc: 425 Interpretive Statements SINUS BRADYCARDIA INFERIOR MYOCARDIAL INFARCTION [40+ ms Q WAVE AND/OR ST/T ABNORMALITY IN II/aVF], PROBABLY RECENT WITH POSTERIOR EXTENSION [PRO ACUTE WI Electronically Signed On 03-18-2019 14:08:04 EDT by Bhanu Grace
--- NOTE | 2019-03-19 13:38 | Invasive Diagnostic Lab Proc ---
Name: Curtis Claudio Date of Study: 03/16/2019 Date: 1965 Ht: 66.0in Medical Record#: [id number] Age: 54 Wt: 207.46lb Gender: Male BSA: 2.03 Order #: [id number] BMI: 33.48 Physicians Procedure Physician: Bhanu Grace MD, FACC Referring MD: Referring MD: Staff Name Position Time In GillianJames oh RN Monitor 02:53 AM Anabel Reveles RT (R) Scrub 02:53 AM Hemanth Feliz RN Composition Worker 02:53 AM Indications Indication STEMI Procedures Performed Procedure PRQ CARD REVASC NJ 1 VSL L HRT ARTERY/VENTRICLE ANGIO Pre-Procedure Checklist Informed consent is complete signed and on chart. H&P is on chart. ID band is on and ID verified with patient. Patient NPO for procedure The procedure was described for the patient and questions were answered. Blood Pressure: 185/108 ECG is on chart. Rhythm: NSR Plan of Care Patient will tolerate the procedure without complications. Adequate level of comfort will be maintained. Hemodynamics will remain stable Patient will recover from procedure without complications. Respiratory function will be maintained. Cardiac rhythm will remain stable. Patient temperature will be maintained. Patient and/or family have verbalized understanding of the procedure. Patient Education Chief Complaint/Reason for Test: Cardiac Cath Developmental Category: Adult (18-64 years) Developmentally Appropriate for Age: Yes Learning Barriers: None Education Needs: Procedure Education Method: Verbal Information Taught: Cardiac Cath Educational Evaluation: Able to repeat information Intravenous Access Time IV Size Location DC'd Fluid/Drip Rate Units RN 20g 1 /" Patent On Arrival Lt Antecubital 0.9NaCl Hemanth Feliz RN Allergies No Known Allergies NKDA Vital Signs Time BP (mmHg) HR (bpm) O2 Sat. RR (bpm) LOC 02:55 AM / % 5 = Fully awake and oriented or at pre-proc level 02:56 AM / % 4 = Oriented but drowsy 03:11 AM / % 4 = Oriented but drowsy 03:29 AM 131 / 89 70 99 % 12 03:35 AM 141 / 88 % 02:46 AM 185 / 108 77 98 % 16 02:49 AM 200 / 118 61 99 % 15 02:54 AM 199 / 119 91 98 % 11 02:59 AM 186 / 113 91 99 % 10 03:05 AM 184 / 121 86 99 % 10 03:09 AM 130 / 92 106 96 % 10 03:13 AM 145 / 103 78 97 % 11 03:19 AM 129 / 81 76 96 % 11 03:24 AM 105 / 72 71 93 % 16 Procedural Medications Time Medication Dose Units Method Given By 02:56 AM Oxygen 2 L/min nasal cannula Hemanth Feliz RN 02:56 AM Versed 2 mg Intravenous Hemanth Feliz RN 02:56 AM Fentanyl 50 mcg Intravenous Hemanth Feliz RN 02:56 AM Lidocaine 2% 0.5 ml Subcutaneous Bhanu Grace 02:58 AM Lidocaine 2% 19 ml Subcutaneous Bhanu Grace MD, FACC 02:59 AM Heparin 2000 units Intravenous Hemanth Feliz RN 03:06 AM Nitroglycerin 100 mcg Intraarterial Bhanu Grace MD 03:11 AM Aggrastat Bolus: 46 ml Intravenous Hemanth Feliz RN 03:11 AM Aggrastat 12.5mg/250ml 16.5 ml Intravenous Hemanth Feliz RN 03:19 AM Nitroglycerin 200 mcg Intravenous Bhanu Grace MD ASA Classification: Emergent Procedure: ASA score is assumed Diamond Score Preprocedure Postprocedure Activity 2- Moves 4 extremities sustained head lift Activity 2- Moves 4 extremities sustained head lift Circulation 2- SBP +/= 20 points of pre-anesthetic level Circulation 2- SBP +/= 20 points of pre-anesthetic level Consciousness 2- Awake and alert oriented x 3 Consciousness 2- Awake and alert oriented x 3 O2 Saturation 2- Able to maintain O2 satruation of 92% on room air O2 Saturation 2- Able to maintain O2 satruation of 92% on room air Respiratory 2- Able to deep breathe and cough well Respiratory 2- Able to deep breathe and cough well Total Score 10 Total Score 10 Contrast Agent: Isovue Diagnostic Contrast: 99 ml Total Contrast: 99 ml Fluoro Dose: 34 mGy Activated Clotting Time Time Seconds to Clot 02:57 AM 222 03:31 AM 249 Procedure Log Time Note Enter By 02:40 AM Pt arrived to laborer tin can 2 at 02:40 oparker 02:43 AM CathStat 02:43 AM Vitals capture started with the following parameters, Patient=Adult, Interval=5 min, Initial Gktlcymj=805 mmHg, Deflation Rate=3 mmHg, Cuff placed on Right Arm 02:46 AM HR=77 bpm, UXQG=142/108 mmhg, SpO2=98.0 %, Resp=16 B/min, Comment=nsr 02:49 AM HR=61 bpm, VIGK=912/118 mmhg, SpO2=99.0 %, Resp=15 B/min 02:53 AM James French RN Position: Monitor Time in: 02:53 oparker 02:53 AM Anabel Reveles (R) Position: Scrub Time in: :53 oparker 02:53 AM Hemanth Feliz RN Position: Composition Worker Time in: :53 oparker 02:53 AM Patient charges- Angio tray pack, Navilyst 3mm J, Pulse Oximetry and ACIST tubing and transducer oparker 02:54 AM Hair removed from procedure site in emergency department using clippers. Right wrist and Right groin prepped with Chloraprep by Anabel Reveles (R), then patient was draped. Skin intact. oparker 02:54 AM Physician arrived 02:54 oparker 02:54 AM Meet and greet completed oparker 02:54 AM Sign in performed according to hospital policy. Informed consent was obtained. oparker 02:54 AM HR=91 bpm, IVDU=878/119 mmhg, SpO2=98.0 %, Resp=11 B/min, Comment=nsr 02:55 AM Procedure start 02:55 oparker 02:55 AM Time: 02:55 Patient comfortable and pain free: Yes oparker 02:56 AM Time: 02:55LOC: 5 = Fully awake and oriented or at pre-proc level oparker 02:56 AM Time: 02:56 Oxygen on at 2 L/min per nasal cannula by Hemanth Feliz RN oparjosé manuel 02:56 AM Time: 02:56 Versed 2 mg Intravenous Given by Hemanth Feliz RN opasobeida 02:56 AM Time: 02:56 Fentanyl 50 mcg Intravenous Given by Hemanth Feliz RN 02:56 AM Time out was performed according to hospital policy. Conscious sedation and anesthesia was achieved (see medication log with in this report above) oparker 02:56 AM Time: 02:56 0.5 ml Lidocaine 2% to right radial Subcutaneous Given by Bhanu Grace oparjosé manuel 02:57 AM Access obtained by percutaneous puncture. 5/6Fr 10cm Terumo [place] sheath placed in right Radial artery. [id number] oparker 02:57 AM At 02:57 the ACT was 222 seconds. oparker 02:57 AM unable to cross with radial access, switching to groin approach. oparker 02:58 AM Time: 02:58 19 ml Lidocaine 2% to right groin Subcutaneous Given by Bhanu Grace MD, [facility] oparker 02:59 AM Access obtained by percutaneous puncture. 6Fr 10cm Terumo [place] sheath placed in right Femoral artery. [id number] oparker 02:59 AM HR=91 bpm, MJKG=288/113 mmhg, SpO2=99.0 %, Resp=10 B/min, Comment=nsr 02:59 AM Time: 02:59 Heparin 2000 units Intravenous Given by Hemanth Feliz RN oparker 03:00 AM 5Fr FL 4 catheter inserted over the wire DN oparker 03:00 AM LCA angiography performed in multiple views. oparker 03:00 AM Recorded Pressure: Ao, HR=89, Condition=Condition 1 (Aorta) Ao 185/131/154 03:00 AM Catheter removed oparker 03:01 AM 6Fr JR 4 Runway guide catheter was used to cannulate the PCI vessel successfully. reused? No oparker 03:03 AM RCA angiography performed in multiple views. oparker 03:04 AM .014 PT Graphix 182cm guide wire across target lesion- successful. reused? No oparker 03:04 AM Inflation device was opened. oparker 03:04 AM 2.0 mm x 15 mm Emerge Monorail balloon across target lesion- successful. reused? No oparker 03:05 AM HR=86 bpm, IXXV=635/121 mmhg, SpO2=99.0 %, Resp=10 B/min 03:05 AM Balloon inflated @ 8 ludivina for 10 seconds oparker 03:05 AM PCI Status Emergency oparker 03:05 AM PCI lesion in Distal RCA. Pre Stenosis: 100 Pre HOLLY Flow: 0: No Flow/No perfusion oparker 03:05 AM PCI Indication: Immediate PCI for STEMI oparker 03:06 AM Time: 03:06 Nitroglycerin 100 mcg Intraarterial Given by Bhanu Grace MD oparker 03:08 AM Recorded Pressure: Ao, HR=?, Condition=Condition 1 (Aorta) Ao ?/?/? 03:08 AM Balloon catheter removed intact. oparker 03:08 AM Guide catheter removed intact. oparker 03:09 AM FE=729 bpm, BAJA=874/92 mmhg, SpO2=96.0 %, Resp=10 B/min, Comment=st 03:09 AM 6Fr JR 4 SH Runway guide catheter was used to cannulate the PCI vessel successfully. reused? No oparker 03:11 AM Time: 02:56LOC: 4 = Oriented but drowsy oparker 03:11 AM Time: 02:55 Patient comfortable and pain free: Yes oparker 03:11 AM Time: 03:11 Aggrastat Bolus: 46 ml Intravenous Given by Hemanth Feliz RN Burris pump oparker 03:11 AM Time: 03:11 Aggrastat 12.5mg/250ml 16.5 ml Intravenous Given by Hemanth Feliz RN Burris pump oparker 03:12 AM Recorded Pressure: Ao, HR=93, Condition=Condition 1 (Aorta) Ao 161/125/141 03:13 AM 2.25mm x 16mm Synergy drug-eluting stent across target lesion- successful Lot #[id number] oparker 03:13 AM Stent deployed @ 12 ludivina for 16 seconds oparker 03:13 AM HR=78 bpm, XCBF=381/103 mmhg, SpO2=97 %, Resp=11 B/min 03:16 AM Stent delivery system removed intact. oparker 03:16 AM 2.5 mm x 8mm NC Emerge balloon across target lesion- successful. reused? No oparker 03:17 AM Recorded Pressure: Ao, HR=88, Condition=Condition 1 (Aorta) Ao 130/108/118 03:17 AM Balloon inflated @ 14 ludivina for 12 seconds oparker 03:18 AM Balloon inflated @ 16 ludivina for 11 seconds oparker 03:19 AM HR=76 bpm, TRRC=308/81 mmhg, SpO2=96.0 %, Resp=11 B/min, Comment=nsr 03:19 AM Time: 03:19 Nitroglycerin 200 mcg Intravenous Given by Bhanu Grace MD oparker 03:20 AM Balloon catheter removed intact. oparker 03:20 AM Coronary Dominance: right oparker 03:20 AM Lesion found in Mid RCA. Pre Stenosis: 50 Pre HOLLY Flow: oparker 03:21 AM Guide wire removed intact. oparker 03:21 AM Guide catheter removed intact. oparker 03:22 AM 5Fr Pigtail catheter inserted over the wire [facility] oparker 03:23 AM Pressure channel 1 zeroed. 03:23 AM Recorded Pressure: LV, HR=67, Condition=Condition 1 (Left Ventricle) LV 103/2/14 03:23 AM Catheter crossed the aortic valve and was selectively placed in the left ventricle. Pressures recorded on pullback for left heart catheterization. oparker 03:23 AM Bolus angiogram of left Ventricle complete: 10 ml/sec for a total of 30 mls oparker 03:23 AM Recorded Pressure: LV, Ao, HR=71, Condition=Condition 1 (Left Ventricle) LV 106/3/16, (Aorta) Ao 93/56/70 03:24 AM HR=71 bpm, SCCR=394/72 mmhg, SpO2=93 %, Resp=16 B/min 03:24 AM Recorded Pressure: Ao, HR=71, Condition=Condition 1 (Aorta) Ao 106/55/73 03:24 AM Catheter removed oparker 03:25 AM Bolus angiogram of right Femoral complete: 4 ml/sec for a total of 7 mls oparker 03:25 AM Wire removed oparker 03:28 AM Time: 03:11 Patient comfortable and pain free: Yes oparker 03:28 AM Time: 03:11LOC: 4 = Oriented but drowsy oparker 03:29 AM Lesion found in 1st Marginal. Pre Stenosis: 50 Pre [place]LLY Flow: oparker 03:29 AM HR=70 bpm, OPIY=861/89 mmhg, SpO2=99.0 %, Resp=12 B/min, Comment=nsr 03:30 AM Procedure completed at 03:30 03/16/2019 oparker 03:30 AM Did you address HOLLY flow and Dominance? YesCoronary Dominance: right oparker 03:31 AM At 03:31 the ACT was 249 seconds. oparker 03:32 AM Sign out completed: Radiation Dose 269.39 mGy, 34.4 Gy/cm2 Fluoro Time: 7.0 Isovue 370 - 200ml contrast 99 ml given by Bhanu Grace MD, [facility]. Complications: None. 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 Sedation minutes 36. Cardiac Rehab Consult needed: Yes. Confirmed administered medications: Yes oparker 03:33 AM Isovue 370 - 150 ml,2 Bottle(s) used. oparker 03:33 AM Sheath left in place to be pulled on floor/holding areaV+Pad oparker 03:33 AM Arterial sheath pulled, Vasc Band closure device used and was Successful S/N. oparker 03:33 AM 10 ml air in Vasc Band. oparker 03:33 AM Estimated Blood Loss: less than 20cc oparker 03:33 AM Post ECG NSR oparker 03:33 AM Post Blood Pressure 131/89 oparker 03:33 AM 03:33 Post Pulses Bilateral DP & PT 2+ oparker 03:33 AM 03:33 Post Pulses Bilateral radial 2+ oparker 03:33 AM Information taught Cardiac Cath, PCI, and Vasc Band oparker 03:33 AM Education needs Procedure, Plan of Care, and Responsibilities of Patient in Care oparker 03:33 AM Learning barriers :None oparker 03:33 AM Education Methods Verbal oparker 03:33 AM Education evaluation Able to repeat information oparker 03:34 AM Site status No bleeding/ No Hematoma - Rt Groin as reported by Anabel Reveles RT (R) at 03:33 oparker 03:34 AM Site status No bleeding/ No Hematoma - Rt Wrist as reported by Anabel Reveles RT (R) at 03:34 oparker 03:34 AM Opsite applied oparker 03:34 AM Plavix, Effient or Brilinta given Yes oparker 03:34 AM Family placed in consult room. oparker 03:34 AM Complications: None oparker 03:35 AM QPPW=414/88 mmhg 03:36 AM Report given to Roberto STEVE Pt taken to ICU Room #1. 03:35 oparker 03:41 AM Patient out of room: 03:41 oparker 03:47 AM Lesion found in Mid LAD. Pre Stenosis: 60 Pre HOLLY Flow: oparker 03:47 AM Lesion found in 1st Diagonal. Pre Stenosis: 90 Pre HOLLY Flow: oparker 03:47 AM Lesion found in RPL. Pre Stenosis: 90 Pre HOLLY Flow: oparker Complications Complication None None Hemodynamics Pressures Site Systolic/A Wave Diastolic/V Wave Mean AO 185 131 154 AO AO 161 125 141 AO 130 108 118 LV 103 2 14 LV 106 3 16 AO 93 56 70 AO 106 55 73 Post Procedure Information Blood Pressure: 131/89 mmHg Rhythm: NSR Post procedural instructions were given Closure Device Time Device Success/Fail Manual Compression Mechanical Compression Successful Site Checks Time Location Status Staff Sheath In? Note 03:33 AM Rt Groin No bleeding/ No Hematoma Anabel Reveles RT (R) 03:34 AM Rt Wrist No bleeding/ No Hematoma Anabel Reveles RT (R) Pulses Time Site Pre-Procedure Post-Procedure Note Bilateral DP & PT 2+ Bilateral radial 2+ 3:33:00 AM Bilateral DP & PT 2+ 3:33:00 AM Bilateral radial 2+ Updated by Saman Chung RN on 03/19/2019 1:29:18 PM electronically signed on 03/19/2019 1:30:19 PM with status of Final
== END 2019-03-18 13:36 | disposition home or self-care (01) | DRG 174 ==
LOC: EMEROOARM 01:53 → ICNU 05:39 → 2NENU 03-17 14:45
PROVIDERS: ADMIT Emergency Medicine; ATTEND Emergency Medicine